=== PATIENT | female | born 1995 | race African-American/Black ===

== ENCOUNTER 2016-05-12 12:47 | Emergency (ER) | payer SELFPAY ==
[~2016-05-12] VITALS: Ht 170.2 cm; Wt 50.0 kg
[~2016-05-12 12:47] MED LIST: BENZ100 PO; MAGICPED SWISH-SWAL
[2016-05-12 13:13] VITALS: BP 110/70; PULSE 60; RESP 20; TEMP 96.1; O2SAT 99
--- NOTE | 2016-05-12 15:13 | PD ---
HPI Chief Complaint: Headache Time Seen by Provider: 15:13 Travel History International Travel<30 days: No Contact w/Intl Traveler<30days: No Traveled to known affect area: No History of Present Illness HPI 20-year-old female presents to the ED via EMS for evaluation of 2 day history of headache. Gradual onset. Described as 8/10, constant, pounding, all over. Patient denies dizziness, vision changes. The patient states that she was at work today, felt dizzy and passed out. She endorses falling to the ground, hitting her head and brief loss of consciousness. She endorses a single episode of vomiting just prior to arrival. Denies nausea on presentation. She denies history of similar headaches. States that she was otherwise feeling well. Denies fevers, chills, neck pain, chest pain, shortness of breath, abdominal pain, dysuria, weakness of the extremities. Last menstrual period 05/05. Patient denies risk of . Denies chronic health problems, takes no daily medications. NKDA. PFSH Past Medical History Asthma: Yes Diminished Hearing: No Immunizations Current: Yes ?: Not LMP: FEW DAYS AGO Social History Alcohol Use: No Tobacco Use: No Substance Use: No Allergies-Medications (Allergen,Severity, Reaction): Coded Allergies: No Known Allergies (Unverified , 05/12/16) Reported Meds & Prescriptions Reported Meds & Active Scripts Active Review of Systems Except as stated in HPI: all other systems reviewed are Neg Physical Exam Narrative GENERAL: Well-nourished, well-developed black female in no acute distress. SKIN: Warm and dry. HEAD: Normocephalic. Atraumatic. EYES: No scleral icterus. No injection or drainage. PERRLA. EOMI. ENT: Pearly merritt tympanic membranes bilaterally. Nasal mucosa is moist. Oropharynx without erythema, edema or exudate. NECK: Supple, trachea midline. No JVD or lymphadenopathy. No midline tenderness to palpation. No limitations to range of motion. CARDIOVASCULAR: Regular rate and rhythm without murmurs, gallops, or rubs. 2+ DP and radial pulses bilaterally. RESPIRATORY: Breath sounds clear and equal bilaterally. No accessory muscle use. GASTROINTESTINAL: Abdomen soft, non-tender, nondistended. + Bowel sounds MUSCULOSKELETAL: No cyanosis, or edema. Full, active range of motion. NEUROLOGICAL: Awake and alert. Cranial nerves II through XII intact. Motor and sensory grossly within normal limits. No pronator drift. 5/5 dorsiflexion, plantar flexion, knee flexion, hip flexion, biceps, triceps and immunopathologist strength bilaterally. Normal speech. BACK: Nontender without obvious deformity. No CVA tenderness. Data Data Last Documented VS Vital Signs Date Time Temp Pulse Resp B/P Pulse Ox O2 Delivery O2 Flow Rate FiO2 05/12/16 13:13 96.1 60 20 110/70 99 Orders Iv Access Insert/Monitor (05/12/16 15:39) Sodium Chloride 0.9% Flush (Ns Flush) (05/12/16 15:45) Ketorolac Inj (Toradol Inj) (05/12/16 15:45) Prochlorperazine Inj (Compazine Inj) (05/12/16 15:45) Diphenhydramine Inj (Benadryl Inj) (05/12/16 15:45) Sodium Chlor 0.9% 1000 Ml Inj (Ns 1000 M (05/12/16 15:39) Ed Urine Pregnancytest Poc (05/12/16 15:39) Complete Blood Count With Diff (05/12/16 16:26) Comprehensive Metabolic Panel (05/12/16 16:26) Urinalysis - C+S If Indicated (05/12/16 16:26) Ct Brain W/O Iv Contrast(Rout) (05/12/16 ) Labs Laboratory Tests Test 05/12/16 05/12/16 16:29 16:37 Urine Color YELLOW Urine Turbidity HAZY Urine pH 6.0 Urine Specific [place] 1.027 Urine Protein TRACE mg/dL Urine Glucose (UA) NEG mg/dL Urine Ketones 40 mg/dL Urine Occult Blood NEG Urine Nitrite NEG Urine Bilirubin NEG Urine Urobilinogen LESS THAN 2.0 MG/DL Urine Leukocyte Esterase NEG Urine RBC 2 /hpf Urine WBC 2 /hpf Urine Squamous Epithelial 4 /hpf Cells Urine Bacteria RARE /hpf Urine Mucus MANY /lpf Microscopic Urinalysis Comment CULT NOT INDICATED White Blood Count 6.5 TH/MM3 Red Blood Count 4.11 MIL/MM3 Hemoglobin 12.0 GM/DL Hematocrit 35.2 % Mean Corpuscular Volume 85.8 FL Mean Corpuscular Hemoglobin 29.2 PG Mean Corpuscular Hemoglobin 34.0 % Concent Red Cell Distribution Width 13.1 % Platelet Count 161 TH/MM3 Mean Platelet Volume 8.6 FL Neutrophils (%) (Auto) 67.6 % Lymphocytes (%) (Auto) 24.5 % Monocytes (%) (Auto) 5.5 % Eosinophils (%) (Auto) 1.9 % Basophils (%) (Auto) 0.5 % Neutrophils # (Auto) 4.4 TH/MM3 Lymphocytes # (Auto) 1.6 TH/MM3 Monocytes # (Auto) 0.4 TH/MM3 Eosinophils # (Auto) 0.1 TH/MM3 Basophils # (Auto) 0.0 TH/MM3 CBC Comment DIFF FINAL Differential Comment Sodium Level 142 MEQ/L Potassium Level 3.5 MEQ/L Chloride Level 110 MEQ/L Carbon Dioxide Level 24.9 MEQ/L Anion Gap 7 MEQ/L Blood Urea Nitrogen 7 MG/DL Creatinine 0.70 MG/DL Estimat Glomerular Filtration 127 ML/MIN Rate Random Glucose 71 MG/DL Calcium Level 7.9 MG/DL Total Bilirubin 0.6 MG/DL Aspartate Amino Transf 23 U/L (AST/SGOT) Alanine Aminotransferase 21 U/L (ALT/SGPT) Alkaline Phosphatase 60 U/L Total Protein 6.0 GM/DL Albumin 3.3 GM/DL [facility] Medical Decision Making Medical Screen Exam Complete: Yes Emergency Medical Condition: Yes Differential Diagnosis Cephalgia versus migraine versus versus electrolyte abnormality versus dehydration versus UTI versus less likely ICH versus other Narrative Course 20-year-old female presents to the ED via EMS for evaluation of 2 day history of headache. Gradual onset. Described as 8/10, constant, pounding, all over. Patient denies dizziness, vision changes. The patient states that she was at work today, felt dizzy and "passed out" She endorses falling to the ground, hitting her head and brief loss of consciousness. She endorses a single episode of vomiting just prior to arrival. Denies nausea on presentation. She denies history of similar headaches. Denies fevers, chills, neck pain, chest pain, shortness of breath, abdominal pain, dysuria, weakness of the extremities. Last menstrual period 05/05/16. Patient denies risk of . Vitals reviewed. Physical exam is a nontoxic-appearing black female in no acute distress. Alert, oriented 5. No cervical spinal tenderness or limitations to range of motion of the neck. No focal neural deficits. IV was established. Patient was administered a liter of fluids, IV Benadryl, IV Compazine, IV Toradol. CBC: Unremarkable CMP: Mild hypocalcemia. UA: No culture indicated CT the head: No acute disease per radiology read. Recheck of the patient reveals resolution of headache symptoms. Patient is instructed to avoid known stressors, rest, hydrate, eat meals at regular intervals. We discussed red flag headache symptoms, reasons to return to the ED. Patient's instructed to follow-up with her primary care provider. She indicated understanding of the instructions. She is agreeable to plan of care. She is stable and discharged home. Diagnosis Primary Impression: Cephalgia Qualified Code: R51 - Intractable headache, unspecified chronicity pattern, unspecified headache type Additional Impression: Hypocalcemia Referrals: Primary Care Physician Patient Instructions: Acute Headache (ED), General Instructions, Hypocalcemia ( ED) Additional Instructions: Rest, hydrate. Consider daily calcium supplement. Avoid no stressors. Eat meals at regular intervals. Follow-up with your primary care provider. Return to the ED for worsening of symptoms, or any urgent or emergent medical condition. Disposition: 01 DISCHARGE HOME Condition: Stable Carole De Leon May 12, 2016 15:13
[2016-05-12] MEDS ORDERED: SODIUM CHLOR 0.9% 1000 ML INJ 1,000 ML IV ONE (15:39)
[2016-05-12] MEDS ORDERED: diphenhydrAMINE HCL 50 MG/ML VIAL IVP ONE (15:45)
[2016-05-12] MEDS ORDERED: PROCHLORPERAZINE INJ 10 MG/2 ML VIAL IVP ONE (15:45)
[2016-05-12] MEDS ORDERED: KETOROLAC TROMETHAMINE 60 MG/2 ML (IM) VIAL IM ONE (15:45)
[2016-05-12] MEDS ORDERED: SODIUM CHLORIDE 0.9% FLUSH 5 ML FLUSH IVF PRN (15:45)
[2016-05-12 16:52] LABS: AUTOMATED NEUTROPHIL # 4.4 TH/MM3 (1.8-7.7); BASOPHIL % 0.5 % (0.0-2.0); EOSINOPHIL # 0.1 TH/MM3 (0-0.4); EOSINOPHIL % 1.9 % (0.0-4.0); HEMATOCRIT 35.2 % (35.0-46.0); HEMO FLAGS DIFF FINAL; LYMPH % 24.5 % (9.0-44.0); LYMPHOCYTE # 1.6 TH/MM3 (1.0-4.8); MEAN CELL VOLUME 85.8 FL (80.0-100.0); MEAN CORPUSCULAR HEMOGLOBIN 29.2 PG (27.0-34.0); MONO % 5.5 % (0.0-8.0); NEUT % 67.6 % (16.0-70.0); PLATELET COUNT 161 TH/MM3 (150-450); RED BLOOD COUNT 4.11 MIL/MM3 (4.00-5.30); RED CELL DISTRIBUTION WIDTH 13.1 % (11.6-17.2); WHITE BLOOD COUNT 6.5 TH/MM3 (4.0-11.0)
--- NOTE | 2016-05-12 17:00 | RADRPT ---
EXAM DATE/TIME: 05/12/2016 16:41 [facility] COMPARISON: No previous studies available for comparison. INDICATIONS : Cephaliga. RADIATION DOSE: 50.03 CTDIvol (mGy) MEDICAL HISTORY : None SURGICAL HISTORY : None. ENCOUNTER: Initial ACUITY: 1 day PAIN SCALE: 5/10 LOCATION: cranial TECHNIQUE: Multiple contiguous axial images were obtained of the head. Using automated exposure control and adj ustment of the mA and/or kV according to patient size, radiation dose was kept as low as reasonably a chievable to obtain optimal diagnostic quality images. FINDINGS: CEREBRUM: The ventricles are normal for age. No evidence of midline shift, mass lesion, hemorrhage or acute in farction. No extra-axial fluid collections are seen. POSTERIOR FOSSA: The cerebellum and brainstem are intact. The 4th ventricle is midline. The cerebellopontine angle i s unremarkable. EXTRACRANIAL: The visualized portion of the orbits is intact. SKULL: The calvaria is intact. No evidence of skull fracture. CONCLUSION: No acute disease. Dennis Santillan MD FACR on May 12, 2016 at 16:58 Board Certified Radiologist. This report was verified electronically.
[2016-05-12 17:07] LABS: BACTERIA, URINE RARE /hpf; BLOOD, URINE NEG (NEG); GLUCOSE,URINE NEG (NEG); KETONE, URINE 40 mg/dL (NEG); MUCUS URINE MANY /lpf (OCC); NITRITE,URINE NEG (NEG); SQUAMOUS EPITHELIAL CELL URINE 4 /hpf (0-5); URINE COLOR YELLOW (YELLW/STRAW)
[2016-05-12 17:09] LABS: ALT (GPT) 21 U/L (10-53); ANION GAP 7 MEQ/L (5-15); AST (GOT) 23 U/L (15-37); BICARBONATE 24.9 MEQ/L (21.0-32.0); BLOOD UREA NITROGEN 7 MG/DL (7-18); CHLORIDE 110 MEQ/L (98-107); GLOMERULAR FILTRATION RATE 127 ML/MIN (>89); POTASSIUM 3.5 MEQ/L (3.5-5.1); SODIUM (NA) 142 MEQ/L (136-145)
[2016-05-12 17:09] LABS: COMMENT (UR) CULT NOT INDICATED; CULTURE IF INDICATED CULT NOT INDICATED
[2016-05-12 17:13] LABS: ALKALINE PHOSPHATASE 60 U/L (45-117); TOTAL BILIRUBIN ADULT 0.6 MG/DL (0.2-1.0)
[2016-05-12] MEDS ORDERED: CALCIUM CARBONATE 1.25 GM (CA 500 MG) TAB PO ONE (17:45)
== END 2016-05-12 18:54 | disposition home or self-care (01) ==
LOC: NEDAMB 12:47
DX: R51 Headache (principal); E83.51 Hypocalcemia; R11.10 Vomiting, unspecified; W18.39XA Other fall on same level, initial encounter; Y99.0 Civilian activity done for income or pay; S06.9X9A Unspecified intracranial injury with loss of consciousness of unspecified duration, initial encounter; J45.909 Unspecified asthma, uncomplicated
CPT/HCPCS: 70450; 80053; 81001; 84703; 85025; 96372; 96374; 96375; 99284; J0780; J1200; J1885; J7030

== ENCOUNTER 2016-07-01 16:34 | Emergency (ER) | payer SELFPAY ==
[~2016-07-01] VITALS: Ht 165.1 cm; Wt 70.0 kg
[2016-07-01 16:36] VITALS: BP 118/62; PULSE 92; RESP 16; TEMP 97.9; O2SAT 99
--- NOTE | 2016-07-01 16:53 | PD ---
Physical Exam Date Seen by Provider: Jul 01, 2016 Time Seen by Provider: 16:47 Narrative Patient seen in Triage with 1 week history of Nausea, Vomitting, Abd. Cramps, and Diarrhea. Patient denies Urinary symptoms, or vaginal symptoms. Patient denies fever or chills. Patients' LMP was a month ago. Patient has no sick contacts. Patient denies flank pain. Vital signs stable. Patient awaiting bed placement. Data Data Last Documented VS Vital Signs Date Time Temp Pulse Resp B/P Pulse Ox O2 Delivery O2 Flow Rate FiO2 07/01/16 16:36 97.9 92 16 118/62 99 Room Air [facility] Medical Record Reviewed: Yes Supervised Visit with BEBO: Yes Condition: Stable Paul Baca Jul 01, 2016 16:53
--- NOTE | 2016-07-01 20:10 | PD ---
HPI Chief Complaint: GI Complaint Time Seen by Provider: 19:59 Travel History International Travel<30 days: No Contact w/Intl Traveler<30days: No Traveled to known affect area: No History of Present Illness HPI 20yo F with no PMH presents to the ED with c/o intermittent lower abdominal cramping for 1 week. States she feels like her period is coming but it has not. LMP 05/30/16 and pt found out that she is here in the ED. Had some nausea and nonbloody diarrhea. Denies any current fever, chest pain, sob, vaginal bleeding or discharge. PFSH Past Medical History Medical History: Denies Significant Hx Asthma: Yes Diminished Hearing: No Immunizations Current: Yes Tetanus Vaccination: > 5 Years ?: Not LMP: 05/29/16 Past Surgical History Surgical History: No Previous Surgery Social History Alcohol Use: No Tobacco Use: No Substance Use: No Allergies-Medications (Allergen,Severity, Reaction): Coded Allergies: No Known Allergies (Unverified , 05/12/16) Reported Meds & Prescriptions Reported Meds & Active Scripts Active No Active Prescriptions or Reported Medications Review of Systems Except as stated in HPI: all other systems reviewed are Neg Physical Exam Narrative GENERAL: 20yo F not in distress. SKIN: Focused skin assessment warm/dry. HEAD: Atraumatic. Normocephalic. CARDIOVASCULAR: Regular rate and rhythm. No murmur appreciated. RESPIRATORY: No accessory muscle use. Clear to auscultation. Breath sounds equal bilaterally. GASTROINTESTINAL: Abdomen soft, +TTP suprapubic region. No RLQ tenderness. No rebound tenderness or guarding. PELVIC: +Small amount of white vaginal discharge. No blood. No CMT or adnexal tenderness bilaterally. MUSCULOSKELETAL: No obvious deformities. No clubbing. No cyanosis. No edema. NEUROLOGICAL: Awake and alert. No obvious cranial nerve deficits. Motor grossly within normal limits. Normal speech. PSYCHIATRIC: Appropriate mood and affect; insight and judgment normal. Data Data Last Documented VS Vital Signs Date Time Temp Pulse Resp B/P Pulse Ox O2 Delivery O2 Flow Rate FiO2 07/01/16 16:36 97.9 92 16 118/62 99 Room Air Orders Beta Hcg (Quant/Titer) (07/01/16 20:05) Complete Blood Count With Diff (07/01/16 20:05) Comprehensive Metabolic Panel (07/01/16 20:05) Lipase (07/01/16 20:05) Urinalysis - C+S If Indicated (07/01/16 20:05) Sodium Chloride 0.9% Flush (Ns Flush) (07/01/16 20:15) Acetaminophen (Tylenol) (07/01/16 20:15) Gc And Chlamydia Pcr (07/01/16 20:56) Wet Prep Profile (07/01/16 20:56) Ed Poc Ultrasound (07/01/16 ) Labs Laboratory Tests Test 07/01/16 07/01/16 20:00 20:05 White Blood Count 9.9 TH/MM3 Red Blood Count 4.25 MIL/MM3 Hemoglobin 12.5 GM/DL Hematocrit 36.2 % Mean Corpuscular Volume 85.1 FL Mean Corpuscular Hemoglobin 29.3 PG Mean Corpuscular Hemoglobin 34.5 % Concent Red Cell Distribution Width 12.8 % Platelet Count 182 TH/MM3 Mean Platelet Volume 9.0 FL Neutrophils (%) (Auto) 60.2 % Lymphocytes (%) (Auto) 30.5 % Monocytes (%) (Auto) 6.5 % Eosinophils (%) (Auto) 2.0 % Basophils (%) (Auto) 0.8 % Neutrophils # (Auto) 5.9 TH/MM3 Lymphocytes # (Auto) 3.0 TH/MM3 Monocytes # (Auto) 0.6 TH/MM3 Eosinophils # (Auto) 0.2 TH/MM3 Basophils # (Auto) 0.1 TH/MM3 CBC Comment DIFF FINAL Differential Comment Urine Color YELLOW Urine Turbidity CLEAR Urine pH 6.0 Urine Specific [place] 1.020 Urine Protein NEG mg/dL Urine Glucose (UA) NEG mg/dL Urine Ketones NEG mg/dL Urine Occult Blood NEG Urine Nitrite NEG Urine Bilirubin NEG Urine Urobilinogen LESS THAN 2.0 MG/DL Urine Leukocyte Esterase NEG Urine RBC LESS THAN 1 /hpf Urine WBC 2 /hpf Urine Squamous Epithelial 3 /hpf Cells Urine Mucus FEW /lpf Microscopic Urinalysis Comment CULT NOT INDICATED Sodium Level 138 MEQ/L Potassium Level 3.5 MEQ/L Chloride Level 105 MEQ/L Carbon Dioxide Level 23.8 MEQ/L Anion Gap 9 MEQ/L Blood Urea Nitrogen 8 MG/DL Creatinine 0.71 MG/DL Estimat Glomerular Filtration 125 ML/MIN Rate Random Glucose 85 MG/DL Calcium Level 8.4 MG/DL Total Bilirubin 0.3 MG/DL Aspartate Amino Transf 12 U/L (AST/SGOT) Alanine Aminotransferase 15 U/L (ALT/SGPT) Alkaline Phosphatase 82 U/L Total Protein 6.8 GM/DL Albumin 3.7 GM/DL Lipase 134 U/L Human Chorionic Gonadotropin, 5897 MIU/ML Quant Clue Cells (Wet Prep) NONE SEEN Vaginal Trichomonas (Wet Prep) NONE SEEN Vaginal Yeast (Wet Prep) NONE SEEN MDM Medical Decision Making Medical Screen Exam Complete: Yes Emergency Medical Condition: Yes Differential Diagnosis Early vs. UTI vs. bacterial vaginosis Narrative Course 20yo F with early . Labs reviewed, no leukocytosis. bHCG 5897. UA negative. Wet prep negative. Bedside US showed + Intrauterine gestational sac. Pt does not want to wait for an official US. Pt is well appearing and has no abdominal pain on exam anymore after acetaminophen. Will have pt follow up with OBGYN. Return precautions given. Diagnosis Primary Impression: Early stage of Patient Instructions: General Instructions Departure Forms: Tests/Procedures Additional Instructions: Please follow up with your OBGYN in 1-2 days. Return to the ED if symptoms worsen. Med/Other Pt SpecificInfo: Prescription(s) given Scripts Acetaminophen (Acetaminophen Extra Strength)500 Mg [id number] Mg PO Q6H PRN (PAIN SCALE 1 TO 4) #20 TAB Ref 0 Prov:Janessa Schmidt DO 07/01/16 Disposition: 01 DISCHARGE HOME Condition: Stable Janessa Schmidt DO Jul 01, 2016 20:10
[2016-07-01] MEDS ORDERED: SODIUM CHLORIDE 0.9% FLUSH 10 ML FLUSH IV FLUSH PRN (20:15)
[2016-07-01] MEDS ORDERED: ACETAMINOPHEN 325 MG TAB PO ONE (20:15)
[2016-07-01 20:21] LABS: AUTOMATED NEUTROPHIL # 5.9 TH/MM3 (1.8-7.7); BASOPHIL # 0.1 TH/MM3 (0-0.2); BASOPHIL % 0.8 % (0.0-2.0); EOSINOPHIL # 0.2 TH/MM3 (0-0.4); HEMATOCRIT 36.2 % (35.0-46.0); HEMO FLAGS DIFF FINAL; LYMPH % 30.5 % (9.0-44.0); MEAN CELL VOLUME 85.1 FL (80.0-100.0); MEAN CORPUSCULAR HEMOGLOBIN 29.3 PG (27.0-34.0); MEAN CORPUSCULAR HGB CONC 34.5 % (32.0-36.0); MONO % 6.5 % (0.0-8.0); NEUT % 60.2 % (16.0-70.0); PLATELET COUNT 182 TH/MM3 (150-450); RED BLOOD COUNT 4.25 MIL/MM3 (4.00-5.30); RED CELL DISTRIBUTION WIDTH 12.8 % (11.6-17.2); WHITE BLOOD COUNT 9.9 TH/MM3 (4.0-11.0)
[2016-07-01 20:43] LABS: ANION GAP 9 MEQ/L (5-15); AST (GOT) 12 U/L (15-37); BICARBONATE 23.8 MEQ/L (21.0-32.0); BLOOD UREA NITROGEN 8 MG/DL (7-18); CHLORIDE 105 MEQ/L (98-107); GLOMERULAR FILTRATION RATE 125 ML/MIN (>89); POTASSIUM 3.5 MEQ/L (3.5-5.1); SODIUM (NA) 138 MEQ/L (136-145)
[2016-07-01 21:00] LABS: ALKALINE PHOSPHATASE 82 U/L (45-117); ALT (GPT) 15 U/L (10-53); BETA HCG QUANT 5897 MIU/ML (0-5); TOTAL BILIRUBIN ADULT 0.3 MG/DL (0.2-1.0)
[2016-07-01 21:20] LABS: BLOOD, URINE NEG (NEG); COMMENT (UR) CULT NOT INDICATED; CULTURE IF INDICATED CULT NOT INDICATED; GLUCOSE,URINE NEG (NEG); KETONE, URINE NEG (NEG); MUCUS URINE FEW /lpf (OCC); NITRITE,URINE NEG (NEG); SQUAMOUS EPITHELIAL CELL URINE 3 /hpf (0-5); URINE COLOR YELLOW (YELLW/STRAW)
[2016-07-01] MEDS ORDERED: ACET500T36 PO (23:57)
[2016-07-02 00:03] VITALS: BP 118/60
[2016-07-02 00:14] LABS: CHLAMYDIA PCR NOT DETECTED (NOT DETECT); NEISSERIA PCR NOT DETECTED (NOT DETECT)
== END 2016-07-02 00:04 | disposition home or self-care (01) ==
LOC: NEPC 16:34
DX: O21.0 Mild hyperemesis gravidarum (principal); Z3A.01 Less than 8 weeks gestation of pregnancy
CPT/HCPCS: 80053; 81001; 83690; 84702; 85025; 87210; 87491; 87591; 99284

== ENCOUNTER 2016-07-07 10:17 | Emergency (ER) | payer OTHER ==
[~2016-07-07] VITALS: Ht 165.1 cm; Wt 70.0 kg
[~2016-07-07 10:17] MED LIST changes: +ACET500T36 PO; -BENZ100 PO; -MAGICPED SWISH-SWAL
[2016-07-07 10:18] VITALS: BP 113/75; PULSE 72; RESP 20; TEMP 98.2; O2SAT 99
[2016-07-07 10:39] VITALS: BP 120/69; PULSE 94; RESP 20; O2SAT 99
[2016-07-07] MEDS ORDERED: SODIUM CHLOR 0.9% 1000 ML INJ 1,000 ML IV ONE (11:30)
[2016-07-07] MEDS ORDERED: METOCLOPRAMIDE HCL 10 MG/2 ML VIAL IV PUSH ONE (11:30)
--- NOTE | 2016-07-07 11:31 | PD ---
HPI Chief Complaint: Related Problem Time Seen by Provider: 11:30 Travel History International Travel<30 days: No Contact w/Intl Traveler<30days: No Traveled to known affect area: No History of Present Illness HPI 20-year-old female presents to the emergency department for evaluation of nausea , vomiting, decreased appetite, lower abdominal pain. She reports a 5-6 weeks . Patient is a G1, P0. She reports nausea and vomiting. She states she has vomited 3 times today. She denies any fevers. She reports 2 episodes of diarrhea yesterday, but none today. No blood in her stool. She states she has not eaten in 2 days and feels dehydrated. She denies any shortness of breath or chest pain. She has no chronic medical problems and takes no medications. She denies any allergies. She denies any abnormal vaginal discharge or bleeding. She reports one sexual partner no risk of STDs. Patient states a abdominal pain started on Tuesday and is currently 10/10. Patient denies any urinary symptoms. No dysuria, frequency, urgency. She has not yet established with an helmet hat sweatband puncher. [facility] Past Medical History Asthma: Yes (HX OF NONE SINCE MIDDLE SCHOOL) Diminished Hearing: No Immunizations Current: Yes ?: LMP: 05/31/16 Past Surgical History Surgical History: No Previous Surgery Social History Alcohol Use: No Tobacco Use: No Substance Use: No Allergies-Medications (Allergen,Severity, Reaction): Coded Allergies: No Known Allergies (Unverified , 05/12/16) Reported Meds & Prescriptions Reported Meds & Active Scripts Active Acetaminophen Extra Strength (Acetaminophen) 500 Mg Tab 500 Mg PO Q6H PRN Review of Systems Except as stated in HPI: all other systems reviewed are Neg Physical Exam Narrative GENERAL: Well-nourished, well-developed female patient, afebrile. SKIN: Focused skin assessment warm/dry. HEAD: Normocephalic. Atraumatic. EYES: No scleral icterus. No injection or drainage. NECK: Supple, trachea midline. No JVD or lymphadenopathy. CARDIOVASCULAR: Regular rate and rhythm without murmurs, gallops, or rubs. RESPIRATORY: Breath sounds equal bilaterally. No accessory muscle use. Lungs sounds are clear to auscultation. GASTROINTESTINAL: Abdomen soft and nondistended. Suprapubic tenderness to palpation. MUSCULOSKELETAL: No cyanosis, or edema. BACK: Nontender without obvious deformity. No CVA tenderness. GENITOURINARY: Normal external genitalia without lesions or erythema. Vaginal vault without blood. Cervical os was closed. No cervical motion tenderness. Uterus nontender and nonenlarged. Bilateral adnexa nontender without masses. Pelvic Exam was done with RN at bedside. Data Data Last Documented VS Vital Signs Date Time Temp Pulse Resp B/P Pulse Ox O2 Delivery O2 Flow Rate FiO2 07/07/16 12:10 90 20 133/60 100 Room Air 07/07/16 10:18 98.2 Orders Beta Hcg (Quant/Titer) (07/07/16 11:26) Complete Blood Count With Diff (07/07/16 11:26) Basic Metabolic Panel (Bmp) (07/07/16 11:26) Urinalysis - C+S If Indicated (07/07/16 11:26) Iv Access Insert/Monitor (07/07/16 11:26) Sodium Chlor 0.9% 1000 Ml Inj (Ns 1000 M (07/07/16 11:30) Metoclopramide Inj (Reglan Inj) (07/07/16 11:30) Acetaminophen (Tylenol) (07/07/16 11:45) Complete Rh (07/07/16 11:32) Us Pelvis (Ques Pr/Ect)W Trans (07/07/16 ) Labs Laboratory Tests Test 07/07/16 07/07/16 11:37 11:44 White Blood Count 7.8 TH/MM3 Red Blood Count 4.95 MIL/MM3 Hemoglobin 14.7 GM/DL Hematocrit 41.6 % Mean Corpuscular Volume 84.0 FL Mean Corpuscular Hemoglobin 29.8 PG Mean Corpuscular Hemoglobin 35.4 % Concent Red Cell Distribution Width 12.5 % Platelet Count 225 TH/MM3 Mean Platelet Volume 9.0 FL Neutrophils (%) (Auto) 77.2 % Lymphocytes (%) (Auto) 15.2 % Monocytes (%) (Auto) 6.6 % Eosinophils (%) (Auto) 0.5 % Basophils (%) (Auto) 0.5 % Neutrophils # (Auto) 6.0 TH/MM3 Lymphocytes # (Auto) 1.2 TH/MM3 Monocytes # (Auto) 0.5 TH/MM3 Eosinophils # (Auto) 0.0 TH/MM3 Basophils # (Auto) 0.0 TH/MM3 CBC Comment DIFF FINAL Differential Comment Sodium Level 136 MEQ/L Potassium Level 3.5 MEQ/L Chloride Level 103 MEQ/L Carbon Dioxide Level 24.7 MEQ/L Anion Gap 8 MEQ/L Blood Urea Nitrogen 6 MG/DL Creatinine 0.71 MG/DL Estimat Glomerular Filtration 125 ML/MIN Rate Random Glucose 79 MG/DL Calcium Level 9.1 MG/DL Human Chorionic Gonadotropin, 53692 MIU/ML Quant Blood Type O POSITIVE Rho(D) Type POSITIVE Urine Color YELLOW Urine Turbidity HAZY Urine pH 5.5 Urine Specific [place] 1.032 Urine Protein 30 mg/dL Urine Glucose (UA) NEG mg/dL Urine Ketones 150 mg/dL Urine Occult Blood NEG Urine Nitrite NEG Urine Bilirubin NEG Urine Urobilinogen LESS THAN 2.0 MG/DL Urine Leukocyte Esterase NEG Urine RBC 1 /hpf Urine WBC 4 /hpf Urine Squamous Epithelial 3 /hpf Cells Urine Hyaline Casts 2 /lpf Urine Mucus MANY /lpf Microscopic Urinalysis Comment CULT NOT INDICATED MDM Medical Decision Making Medical Screen Exam Complete: Yes Emergency Medical Condition: Yes Medical Record Reviewed: Yes Interpretation(s) US pelvis - CONCLUSION: 1. Viable intrauterine estimated age 6 weeks 2 days. Differential Diagnosis Intrauterine versus ectopic versus viral syndrome versus nausea, vomiting in versus electrolyte abnormality Narrative Course 20-year-old female presents to the emergency department for evaluation of nausea , vomiting in with lower abdominal pain. CBC, BMP, beta hCG, UA, complete Rh are ordered and pending. Ultrasound the pelvis is ordered and pending. IV access is established. Patient is given 1 liter NS IV bolus, Reglan 10 mg IV, Tylenol 650 mg PO. CBC shows no acute abnormality. BMP shows [place] [address]. Blood type is O+. UA shows no evidence of infection. US pelvis shows viable intrauterine estimated age 6 weeks 2 days. Patient is instructed to follow that helmet hat sweatband puncher. She'll be discharged prescription for Zofran for her nausea. She verbalizes agreement and understanding. The patient was discharged in stable condition with instructions, including return instructions and follow up instructions. Diagnosis Primary Impression: Intrauterine Referrals: Reading Teacher call for appointment Patient Instructions: First Trimester (ED), General Instructions Departure Forms: Tests/Procedures, Work Release Enter return to work date: Jul 10, 2016 Additional Instructions: Take Zofran as instructed as needed for nausea/vomiting. Tylenol every 4 hours as needed for pain. Follow-up with your helmet hat sweatband puncher. Return to the emergency department for any acute worsening of symptoms. Med/Other Pt SpecificInfo: Prescription(s) given Scripts Ondansetron Odt 4 Mg Tab4 Mg SL Q6HR PRN (Nausea/Vomiting) #16 TAB Ref 0 Prov:Chiquis Ko 07/07/16 Disposition: 01 DISCHARGE HOME Condition: Stable Chiquis Ko Jul 07, 2016 11:31
[2016-07-07] MEDS ORDERED: ACETAMINOPHEN 325 MG TAB PO ONE (11:45)
[2016-07-07 12:00] LABS: BASOPHIL % 0.5 % (0.0-2.0); EOSINOPHIL % 0.5 % (0.0-4.0); HEMATOCRIT 41.6 % (35.0-46.0); HEMO FLAGS DIFF FINAL; LYMPH % 15.2 % (9.0-44.0); LYMPHOCYTE # 1.2 TH/MM3 (1.0-4.8); MEAN CORPUSCULAR HEMOGLOBIN 29.8 PG (27.0-34.0); MEAN CORPUSCULAR HGB CONC 35.4 % (32.0-36.0); MONO % 6.6 % (0.0-8.0); NEUT % 77.2 % (16.0-70.0); PLATELET COUNT 225 TH/MM3 (150-450); RED BLOOD COUNT 4.95 MIL/MM3 (4.00-5.30); RED CELL DISTRIBUTION WIDTH 12.5 % (11.6-17.2); WHITE BLOOD COUNT 7.8 TH/MM3 (4.0-11.0)
[2016-07-07 12:10] VITALS: BP 133/60; PULSE 90; RESP 20; O2SAT 100
[2016-07-07 12:13] LABS: BLOOD, URINE NEG (NEG); GLUCOSE,URINE NEG (NEG); HYALINE CAST, URINE 2 /lpf (RARE); KETONE, URINE 150 mg/dL (NEG); MUCUS URINE MANY /lpf (OCC); NITRITE,URINE NEG (NEG); PH, URINE 5.5 (5.0-8.5); SQUAMOUS EPITHELIAL CELL URINE 3 /hpf (0-5); URINE COLOR YELLOW (YELLW/STRAW)
[2016-07-07 12:15] LABS: COMMENT (UR) CULT NOT INDICATED; CULTURE IF INDICATED CULT NOT INDICATED
[2016-07-07 12:21] LABS: BICARBONATE 24.7 MEQ/L (21.0-32.0); POTASSIUM 3.5 MEQ/L (3.5-5.1)
--- NOTE | 2016-07-07 15:48 | RADRPT ---
EXAM DATE/TIME: 07/07/2016 14:11 [facility] COMPARISON: No previous studies available for comparison. INDICATIONS : Pelvic pain. LAB(S): Beta-hC,193 MEDICAL HISTORY : . Asthma. SURGICAL HISTORY : None. ENCOUNTER: Initial ACUITY: 3 days PAIN SCORE: 3/10 LOCATION: Bilateral pelvis MEASUREMENTS: UTERUS: 7.4 x 3.6 x 4.5 cm ENDOMETRIAL STRIPE: 9 mm RIGHT OVARY: 3.7 x 2.7 x 4.0 cm LEFT OVARY: 3.0 x 1.7 x 2.1 cm FREE FLUID: No CROWN RUMP LENGTH: 0.5 cm = 6 WKS 2 DAYS FHR: 121 BPM FINDINGS: UTERUS: The examination demonstrates an intrauterine gestation. Everly-rump length measures 0.51 CM. This kinza esponds to gestational age 6 weeks 2 days. A heartbeat was present at 121 beats per minutes. Th ere is a small hypoechoic area seen adjacent to the gestational sacs measuring 6 mm x 9 mm possibly r epresenting a small area of subchorionic hemorrhage. RIGHT OVARY: Ovary contains no mass or significant cystic lesion. LEFT OVARY: Ovary contains no mass or significant cystic lesion. MISCELLANEOUS: No free fluid. CONCLUSION: 1. Viable intrauterine estimated age 6 weeks 2 days. Anupam Santillan MD on July 07, 2016 at 15:44 Board Certified Radiologist. This report was verified electronically.
[2016-07-07] MEDS ORDERED: ONDA4TAB7 SL (15:57)
== END 2016-07-07 16:34 | disposition home or self-care (01) ==
LOC: NEPD 10:17
DX: O21.9 Vomiting of pregnancy, unspecified (principal); O26.891 Other specified pregnancy related conditions, first trimester; R10.30 Lower abdominal pain, unspecified; Z3A.01 Less than 8 weeks gestation of pregnancy
CPT/HCPCS: 76700; 76817; 80048; 81001; 84702; 85025; 86901; 96361; 96374; 99284; J2765; J7030

== ENCOUNTER 2016-07-24 15:39 | Emergency (ER) | payer MEDICAID ==
[~2016-07-24] VITALS: Ht 165.1 cm; Wt 64.5 kg
[~2016-07-24 15:39] MED LIST changes: +ONDA4TAB7 SL
[2016-07-24 15:41] VITALS: BP 128/75; PULSE 86; RESP 20; TEMP 98.5; O2SAT 98
--- NOTE | 2016-07-24 16:03 | PD ---
Physical Exam Date Seen by Provider: Jul 24, 2016 Time Seen by Provider: 16:00 Narrative 20 y/o female with 3 days of vomiting and nausea. Patient 6 weeks with first . Denies fever, chills, abdominal pain or Urinary symptoms. Patient feels weak and unable to keep anything down. V/S Stable Waiting bed placement. Data Data Last Documented VS Vital Signs Date Time Temp Pulse Resp B/P Pulse Ox O2 Delivery O2 Flow Rate FiO2 07/24/16 15:41 98.5 86 20 128/75 98 Room Air [facility] Medical Record Reviewed: Yes Supervised Visit with BEBO: Yes Condition: Stable Paul Baca Jul 24, 2016 16:03
[2016-07-24] MEDS ORDERED: SODIUM CHLOR 0.9% 1000 ML INJ 1,000 ML IV SCH (16:10)
[2016-07-24] MEDS ORDERED: SODIUM CHLORIDE 0.9% FLUSH 10 ML FLUSH IV FLUSH PRN (16:15)
[2016-07-24] MEDS ORDERED: diphenhydrAMINE HCL 50 MG/ML VIAL IV PUSH ONE (16:15)
--- NOTE | 2016-07-24 16:22 | PD ---
HPI Chief Complaint: GI Complaint Time Seen by Provider: 16:07 Travel History International Travel<30 days: No Contact w/Intl Traveler<30days: No Traveled to known affect area: No History of Present Illness HPI Patient is a 20-year-old female at This 8 weeks 5 days by 6 week ultrasound performed at this facility. She presents emergency department today for feelings of nausea and vomiting and not been able to keep anything down. Patient states his been going on for the past few days. She has not tried anything prior to arrival. Denies any abdominal pain vaginal bleeding vaginal discharge loss of fluid or pelvic pain. Patient states she is thirsty and feeling weak. Denies any fevers. States symptoms are gradually worsening. [facility] Past Medical History Asthma: Yes (HX OF NONE SINCE MIDDLE SCHOOL) Diminished Hearing: No Immunizations Current: Yes ?: LMP: 05/31/2016 Social History Alcohol Use: No Tobacco Use: No Substance Use: No Allergies-Medications (Allergen,Severity, Reaction): Coded Allergies: No Known Allergies (Unverified , 07/24/16) Reported Meds & Prescriptions Reported Meds & Active Scripts Active Diphenhydramine (Diphenhydramine HCl) 25 Mg Cap 25 Mg PO Q6H PRN Ondansetron Odt 4 Mg Tab 4 Mg SL Q6HR PRN Acetaminophen Extra Strength (Acetaminophen) 500 Mg Tab 500 Mg PO Q6H PRN Review of Systems Except as stated in HPI: all other systems reviewed are Neg Physical Exam Narrative GENERAL: Well-developed well-nourished no apparent distress. SKIN: Warm and dry. HEAD: Atraumatic. Normocephalic. EYES: Pupils equal and round. No scleral icterus. No injection or drainage. ENT: No nasal bleeding or discharge. Mucous membranes pink and moist. NECK: Trachea midline. No JVD. CARDIOVASCULAR: Regular rate and rhythm. RESPIRATORY: No accessory muscle use. Clear to auscultation. Breath sounds equal bilaterally. GASTROINTESTINAL: Abdomen soft, non-tender, nondistended. Hepatic and splenic margins not palpable. No rebound no percussive tenderness. Uterine fundus not palpable. MUSCULOSKELETAL: Extremities without clubbing, cyanosis, or edema. No obvious deformities. NEUROLOGICAL: Awake and alert. No obvious cranial nerve deficits. Motor grossly within normal limits. Five out of 5 muscle strength in the arms and legs. Normal speech. PSYCHIATRIC: Appropriate mood and affect; insight and judgment normal. Data Data Last Documented VS Vital Signs Date Time Temp Pulse Resp B/P Pulse Ox O2 Delivery O2 Flow Rate FiO2 07/24/16 15:41 98.5 86 20 128/75 98 Room Air Orders Basic Metabolic Panel (Bmp) (07/24/16 16:10) Complete Blood Count With Diff (07/24/16 16:10) Iv Access Insert/Monitor (07/24/16 16:10) Ecg Monitoring (07/24/16 16:10) Oximetry (07/24/16 16:10) Sodium Chlor 0.9% 1000 Ml Inj (Ns 1000 M (07/24/16 16:10) Sodium Chloride 0.9% Flush (Ns Flush) (07/24/16 16:15) Diphenhydramine Inj (Benadryl Inj) (07/24/16 16:15) Ondansetron Inj (Zofran Inj) (07/24/16 17:00) Labs Laboratory Tests Test 07/24/16 16:42 White Blood Count 10.4 TH/MM3 Red Blood Count 4.47 MIL/MM3 Hemoglobin 13.2 GM/DL Hematocrit 37.3 % Mean Corpuscular Volume 83.4 FL Mean Corpuscular Hemoglobin 29.5 PG Mean Corpuscular Hemoglobin 35.4 % Concent Red Cell Distribution Width 13.3 % Platelet Count 222 TH/MM3 Mean Platelet Volume 8.2 FL Neutrophils (%) (Auto) 78.2 % Lymphocytes (%) (Auto) 14.7 % Monocytes (%) (Auto) 6.1 % Eosinophils (%) (Auto) 0.5 % Basophils (%) (Auto) 0.5 % Neutrophils # (Auto) 8.1 TH/MM3 Lymphocytes # (Auto) 1.5 TH/MM3 Monocytes # (Auto) 0.6 TH/MM3 Eosinophils # (Auto) 0.1 TH/MM3 Basophils # (Auto) 0.0 TH/MM3 CBC Comment DIFF FINAL Differential Comment Sodium Level 138 MEQ/L Potassium Level 3.5 MEQ/L Chloride Level 103 MEQ/L Carbon Dioxide Level 26.0 MEQ/L Anion Gap 9 MEQ/L Blood Urea Nitrogen 4 MG/DL Creatinine 0.54 MG/DL Estimat Glomerular Filtration 171 ML/MIN Rate Random Glucose 83 MG/DL Calcium Level 9.1 MG/DL MDM Medical Decision Making Medical Screen Exam Complete: Yes Emergency Medical Condition: Yes Differential Diagnosis Nausea in , emesis and , electrolyte abnormality, hyperemesis gravidarum. Narrative Course Patient was roomed in the emergency department, she has vomited once in the emergency department productive of nonbilious nonbloody emesis. Her abdomen is benign. She has no vaginal complaints. She was given Benadryl and Zofran and had complete relief of her symptoms is feeling better. A liter of normal saline was given. Discussed with the patient symptomatically management home with Benadryl time. She will follow-up with her [employer]ATE [employer]TER AND INSPECTOR. At this point she is stable for discharge and is tolerating minimal sips of by mouth fluids. Discussed push by mouth fluid at home and returned ED criteria. Diagnosis Primary Impression: Nausea & vomiting Qualified Code: R11.2 - Nausea and vomiting, intractability of vomiting not specified, unspecified vomiting type Med/Other Pt SpecificInfo: Prescription(s) given Scripts Diphenhydramine 25 Mg Cap25 Mg PO Q6H PRN (NAUSEA) #20 CAP Ref 0 Prov:Darrius Steele MD 07/24/16 Disposition: DISCHARGE HOME Condition: Stable Darrius Steele MD Jul 24, 2016 16:22
[2016-07-24] MEDS ORDERED: ONDANSETRON HCL 4 MG/2 ML VIAL IV PUSH ONE (17:00)
[2016-07-24 17:13] LABS: AUTOMATED NEUTROPHIL # 8.1 TH/MM3 (1.8-7.7); BASOPHIL % 0.5 % (0.0-2.0); EOSINOPHIL # 0.1 TH/MM3 (0-0.4); EOSINOPHIL % 0.5 % (0.0-4.0); HEMATOCRIT 37.3 % (35.0-46.0); HEMO FLAGS DIFF FINAL; LYMPH % 14.7 % (9.0-44.0); LYMPHOCYTE # 1.5 TH/MM3 (1.0-4.8); MEAN CELL VOLUME 83.4 FL (80.0-100.0); MEAN CORPUSCULAR HEMOGLOBIN 29.5 PG (27.0-34.0); MEAN CORPUSCULAR HGB CONC 35.4 % (32.0-36.0); MONO % 6.1 % (0.0-8.0); NEUT % 78.2 % (16.0-70.0); PLATELET COUNT 222 TH/MM3 (150-450); RED BLOOD COUNT 4.47 MIL/MM3 (4.00-5.30); RED CELL DISTRIBUTION WIDTH 13.3 % (11.6-17.2); WHITE BLOOD COUNT 10.4 TH/MM3 (4.0-11.0)
[2016-07-24 17:31] LABS: POTASSIUM 3.5 MEQ/L (3.5-5.1)
[2016-07-24] MEDS ORDERED: DIPH25CA PO (18:09)
== END 2016-07-24 18:44 | disposition home or self-care (01) ==
LOC: NEPD 15:39
DX: O26.91 Pregnancy related conditions, unspecified, first trimester (principal); R11.2 Nausea with vomiting, unspecified; Z3A.08 8 weeks gestation of pregnancy; R53.1 Weakness
CPT/HCPCS: 80048; 85025; 96361; 96374; 96375; 99284; J1200; J2405; J7030

== ENCOUNTER 2016-11-25 13:44 | Emergency (ER) | payer MEDICAID ==
[~2016-11-25] VITALS: Ht 165.1 cm; Wt 78.5 kg
[2016-11-25] MEDS ORDERED: PNV11TAB (14:03)
[2016-11-25] MEDS ORDERED: MAGNESIUM HYDROXIDE SUSP 30 ML CUP PO ONE (14:30)
[2016-11-25] MEDS ORDERED: ACETAMINOPHEN 500 MG CPLT PO ONE (14:30)
--- NOTE | 2016-11-25 15:05 | PD ---
HPI Date Seen: Nov 25, 2016 Time Seen: 14:30 Travel History International Travel<30 Days: No Contact w/Intl Traveler<30Days: No Known Affected Area: No History of Present Illness HPI Pt is a 21 yo at 26 6/7 weeks based on EDC of 02-25-2017. Pt receives care at [facility]. Care previously uncomplicated. Reports with low abdominal pain starting this morning. Admits to nausea but no vomiting. Had diarrhea 2 days ago. No sick contacts. Active movements. No vaginal bleeding or leaking. Weeks Gestation: 26 Para: 0 : 1 History Past Medical History Medical History: Denies Significant Hx Past Surgical History Surgical History: No Previous Surgery Family History Family History: Negative Social History Alcohol Use: No Tobacco Use: No Substance Abuse: No Allergies-Medications (Allergen,Severity, Reaction): Coded Allergies: No Known Allergies (Unverified , 11/17/16) Home Meds Reported Medications Hne135/FA/Omega3/Dha/Fish Oil ( Gummies) 1 Each Tab.chew 11/25/16 Review of Systems Except as stated in HPI: all other systems reviewed are Neg Physical Exam Narrative GENERAL: Well-nourished, well-developed patient. SKIN: Warm and dry. HEAD: Normocephalic and atraumatic. EYES: No scleral icterus. No injection or drainage. ENT: No nasal drainage noted. Mucous membranes pink. Airway patent. NECK: Supple, trachea midline. No JVD. CARDIOVASCULAR: Regular rate and rhythm without murmurs, gallops, or rubs. RESPIRATORY: Breath sounds equal bilaterally. No accessory muscle use. BREASTS: Bilateral exam showed no masses , no retractions, no nipple discharge. ABDOMEN/GI: Abdomen soft, non-tender, bowel sounds present, no rebound, no guarding Gravid to [-] weeks size Fundal Height: [-] GENITOURINARY: External Genitalia: intact and normal in appearance BUS glands: [-] Cervix: [firm ] Dilatation: [closed Effacement: [uneffaced] Station: [high] Presentation: [-] Membranes: [intact] Uterine Contractions: [-] FHT's: Category: [1] Baseline: [130] Reactive: [-] Variability: [moderate] Decels: [none-] Stool felt in rectum EXTREMITIES: No cyanosis or edema. BACK: Nontender without obvious deformity. No CVA tenderness. NEUROLOGICAL: Awake and alert. Motor and sensory grossly within normal limits. Five out of 5 muscle strength in all muscle groups. Normal speech. Data Data Vital Signs Reviewed: Yes Orders Orders Magnesium Hydroxide Liq (Milk Of Magnesi (11/25/16 14:30) Acetaminophen (Tylenol) (11/25/16 14:30) MDM Interpretation(s) Pt reports low abdominal pain. No contractions noted on TOCO. Stool felt in rectum on vaginal exam Feels better after PO Tylenol/ Milk of Magnessium. No cervical change on recheck vaginal exam. Diagnosis Diagnosis: Primary Impression: Abdominal pain affecting Additional Impression: Constipation during Disposition: DISCHARGE HOME Condition: Good Storm Huggins MD Nov 25, 2016 15:05
[2016-12-15] MEDS ORDERED: METR500T10 PO (13:49)
== END 2016-11-25 15:40 | disposition home or self-care (01) ==
LOC: HOBED 13:44
DX: O26.893 Other specified pregnancy related conditions, third trimester (principal); R10.30 Lower abdominal pain, unspecified; K59.00 Constipation, unspecified; R11.0 Nausea; R19.7 Diarrhea, unspecified; Z3A.26 26 weeks gestation of pregnancy
CPT/HCPCS: 99283

== ENCOUNTER → 2016-12-10 | Outpatient (CLI) | payer MEDICAID ==
[~2016-12-10] MED LIST changes: -ACET500T36 PO; +METR500T10 PO; -ONDA4TAB7 SL; +PNV11TAB
== END ==
LOC: HPND 08:53
PROVIDERS: ATTEND Obstetrics & Gynecology
DX: O41.03X0 Oligohydramnios, third trimester, not applicable or unspecified (principal)
CPT/HCPCS: 76816

== ENCOUNTER 2016-12-22 02:33 | Emergency (ER) | payer MEDICAID ==
--- NOTE | 2016-12-22 03:42 | PD ---
HPI Chief Complaint nausea, vomiting Travel History International Travel<30 Days: No Contact w/Intl Traveler<30Days: No Known Affected Area: No History of Present Illness HPI 21-year-old , IUP at 30.5 care uncomplicated except for a history of asthma Patient presents complaining of the onset of nausea and vomiting at 1 PM on the afternoon of 12/21/16. She denies any ill contacts or known ingestion of spoiled food. She reports that she has had 1 episode of diarrhea and about 5 episodes of emesis but only one with food at 9pm; the rest were just "stomach acid." She reports that she last attempted to be at 9 PM which she was unable to tolerate and threw up. She denies any yellow or VB. She reports good movement. She denies any painful contractions. She reports some generalized cramping abdominal pain but denies uterine contractions or cramping. There are no aggravating or alleviating factors to the nausea, vomiting, and abdominal pain and no prior attempted treatments. Weeks Gestation: 30 Para: 0 : 1 History Past Medical History Narrative Medical Childhood asthma Obstetric History Obstetric History Past Surgical History Surgical History: No Previous Surgery Family History Family History: Negative Social History Alcohol Use: No Tobacco Use: No Substance Abuse: No Allergies-Medications (Allergen,Severity, Reaction): Coded Allergies: No Known Allergies (Unverified , 12/15/16) Home Meds Active Scripts Metronidazole (Metronidazole) 500 Mg Tab, 500 MG PO BID for Infection, #14 TAB 0 Refills Prov:Opal Evans 12/15/16 Reported Medications Agm412/FA/Omega3/Dha/Fish Oil ( Gummies) 1 Each Tab.chew 11/25/16 Review of Systems Except as stated in HPI: all other systems reviewed are Neg Gastrointestinal: Nausea, Vomiting, Diarrhea, Abdominal Pain Physical Exam Narrative GENERAL: Well-nourished, well-developed patient. SKIN: Warm and dry. HEAD: Normocephalic and atraumatic. EYES: No scleral icterus. No injection or drainage. ENT: No nasal drainage noted. Mucous membranes pink. Airway patent. NECK: Supple, trachea midline. No JVD. CARDIOVASCULAR: Regular rate and rhythm without murmurs, gallops, or rubs. RESPIRATORY: Breath sounds equal bilaterally. No accessory muscle use. BREASTS: Deferred ABDOMEN/GI: Abdomen soft, non-tender, bowel sounds present, no rebound, no guarding Gravid GENITOURINARY: Deferred FHT's: Baseline 130s with a category 1 heart rate tracing, good accelerations and no decelerations noted. Moderate long-term variability. heart rate tracing is reactive and appropriate for gestational age. EXTREMITIES: No cyanosis or edema. BACK: Nontender without obvious deformity. No CVA tenderness. NEUROLOGICAL: Awake and alert. Motor and sensory grossly within normal limits. Five out of 5 muscle strength in all muscle groups. Normal speech. Musculoskeletal: Grossly normal ROM, gait, muscle strength Psychiatric: Grossly normal memory and affect MDM Plan Assessment/plan: 1. IUP at 30.5 2. Nausea vomiting and diarrhea: Patient with only 1 episode of diarrhea since onset of illness was likely consistent with a mild gastroenteritis. Patient symptomatically improved with IV fluids and antiemetics. Strict nausea/ vomiting precautions. Patient was able to tolerate a by mouth challenge prior to discharge and reports she is feeling much better. She'll be discharged home with a BRAT diet and sublingual Zofran as needed. Mild hypokalemia was noted and the patient was given 40 mEq of potassium prior to discharge with a prescription to take an additional 40 mEq of potassium at lunch. 3. No evidence of labor, strict labor precautions. 4. well-being: Reassuring testing with FHR reassuring and appropriate for gestational age. NST reactive for gestational age. kick counts daily. 5. Follow-up with primary OB in 2-3 days or sooner if needed. 6. Thrombocytopenia: a mild thrombocytopenia was noted, the patient was instructed to follow up with the [facility] in 2-3 days for further discussion and evaluation Diagnosis Diagnosis: Primary Impression: 30 weeks gestation of Additional Impression: Gastroenteritis Disposition: 01 DISCHARGE HOME Condition: Good Patient Instructions: Labor (ED), Movement (ED), Nausea and Vomiting in (ED) Opal Jay MD Dec 22, 2016 03:42
[2016-12-22] MEDS ORDERED: ONDANSETRON HCL 4 MG/2 ML VIAL IV ONE (03:45)
[2016-12-22 04:07] LABS: HEMATOCRIT 34.4 % (35.0-46.0); MEAN CELL VOLUME 85.2 FL (80.0-100.0); MEAN CORPUSCULAR HEMOGLOBIN 29.4 PG (27.0-34.0); MEAN CORPUSCULAR HGB CONC 34.5 % (32.0-36.0); PLATELET COUNT 139 TH/MM3 (150-450); RED BLOOD COUNT 4.04 MIL/MM3 (4.00-5.30); RED CELL DISTRIBUTION WIDTH 13.5 % (11.6-17.2); REVIEW FLAG FINAL; WHITE BLOOD COUNT 12.5 TH/MM3 (4.0-11.0)
[2016-12-22 04:28] LABS: ALT (GPT) 14 U/L (10-53); ANION GAP 8 MEQ/L (5-15); AST (GOT) 13 U/L (15-37); BICARBONATE 21.8 MEQ/L (21.0-32.0); BLOOD UREA NITROGEN 4 MG/DL (7-18); CHLORIDE 108 MEQ/L (98-107); GLOMERULAR FILTRATION RATE 199 ML/MIN (>89); POTASSIUM 3.3 MEQ/L (3.5-5.1); SODIUM (NA) 138 MEQ/L (136-145)
[2016-12-22 04:30] LABS: ALKALINE PHOSPHATASE 130 U/L (45-117); TOTAL BILIRUBIN ADULT 0.2 MG/DL (0.2-1.0)
[2016-12-22] MEDS ORDERED: POTASSIUM CHLORIDE 20 MEQ CONTROLLED RELEASE TAB PO ONE (05:00)
== END 2016-12-22 05:11 | disposition home or self-care (01) ==
LOC: HOBED 02:33
DX: O99.613 Diseases of the digestive system complicating pregnancy, third trimester (principal); K52.9 Noninfective gastroenteritis and colitis, unspecified; O99.283 Endocrine, nutritional and metabolic diseases complicating pregnancy, third trimester; E87.6 Hypokalemia; O99.113 Other diseases of the blood and blood-forming organs and certain disorders involving the immune mechanism complicating pregnancy, third trimester; D69.6 Thrombocytopenia, unspecified; Z3A.30 30 weeks gestation of pregnancy
CPT/HCPCS: 80053; 85027; 96374; 99284; J2405

== ENCOUNTER 2017-02-02 13:15 | Inpatient (IN) | payer MEDICAID ==
[2017-02-02] VITALS (31 sets, daily range): BP systolic 116–149; BP diastolic 52–93; PULSE 65–116; RESP 16–20; TEMP 97.6–98.6
[~2017-02-02] VITALS: Ht 165.1 cm; Wt 84.8 kg
[~2017-02-02 13:15] MED LIST changes: +AMPI500C8 PO; -METR500T10 PO
--- NOTE | 2017-02-02 13:56 | PD ---
HPI Chief Complaint Pelvic Pressure Date Seen: Feb 02, 2017 Time Seen: 13:45 (Ag Montiel MD R2) Travel History International Travel<30 Days: No Contact w/Intl Traveler<30Days: No (Ag Montiel MD R2) History of Present Illness HPI 21-year-old at 36/5 weeks gestation presenting with constant pelvic pressure starting last night. Associated with some urinary frequency, no dysuria. Denies vaginal bleeding, leakage of fluid, contractions. Endorses movement. Denies chest pain or shortness of breath. care [facility] with [facility]. (Ag Montiel MD R2) History Past Medical History Narrative Medical Childhood asthma (Ag Montiel MD) Obstetric History Obstetric History G1 (Ag Montiel MD) Past Surgical History Surgical History: No Previous Surgery (Ag Montiel MD R2) Family History Family History: Negative (Ag Montiel MD) Social History Alcohol Use: No Tobacco Use: No Substance Abuse: No (Ag Montiel MD R2) Allergies-Medications (Allergen,Severity, Reaction): Coded Allergies: No Known Allergies (Unverified Allergy, Unknown, 02/02/17) Home Meds Reported Medications Lxn000/FA/Omega3/Dha/Fish Oil ( Gummies) 1 Each Tab.chew 11/25/16 Discontinued Scripts Ampicillin (Ampicillin) 500 Mg Cap, 500 MG PO QID for 7 Days, #28 CAP Prov:Supriya Crespo CNM [employer] MANAGER 01/28/17 Review of Systems Except as stated in HPI: all other systems reviewed are Neg (Ag Montiel MD R2) Physical Exam Vital Signs Date Time Temp Pulse Resp B/P (MAP) Pulse Ox O2 Delivery O2 Flow Rate FiO2 02/02/17 13:50 90 02/02/17 13:45 91 02/02/17 13:40 85 02/02/17 13:35 97.6 97 02/02/17 13:34 20 02/02/17 13:30 78 02/02/17 13:30 65 02/02/17 13:30 143/73 (96) Narrative GENERAL: Well-nourished, well-developed patient. SKIN: Warm and dry. HEAD: Normocephalic and atraumatic. EYES: No scleral icterus. No injection or drainage. ENT: No nasal drainage noted. Mucous membranes pink. Airway patent. CARDIOVASCULAR: Regular rate and rhythm without murmurs, gallops, or rubs. RESPIRATORY: Breath sounds equal bilaterally. No accessory muscle use. ABDOMEN/GI: Abdomen soft, non-tender, no rebound, no guarding GENITOURINARY: Cervix: posterior, rotated toward left Dilation: 1 cm Effacement: 60% Presentation: Vertex Membranes: Intact Contractions: None FHT's: Category: 1 Baseline: 135 Reactive: Y Variability: moderate Decels: N EXTREMITIES: No cyanosis or edema. NEUROLOGICAL: Awake and alert. Motor and sensory grossly within normal limits. Normal speech. (Ag Montiel MD R2) Data Data Vital Signs Reviewed: Yes Orders Orders Vital Signs (Adult) .ON ADMISSION (02/02/17 13:25) ^ Labor Status (02/02/17 13:25) ^ Non Stress Test (02/02/17 13:25) ^ Hydration (02/02/17 13:25) Urinalysis - C+S If Indicated (02/02/17 13:42) Group B Strep: Positive Labs Laboratory Tests Test 02/02/17 13:37 02/02/17 14:15 Urine Color YELLOW Urine Turbidity CLEAR Urine pH 6.0 Urine Specific [place] 1.019 Urine Protein TRACE mg/dL Urine Glucose (UA) NEG mg/dL Urine Ketones NEG mg/dL Urine Occult Blood NEG Urine Nitrite NEG Urine Bilirubin NEG Urine Urobilinogen LESS THAN 2.0 MG/DL Urine Leukocyte Esterase TRACE Urine RBC 1 /hpf Urine WBC 1 /hpf Urine Squamous Epithelial Cells 4 /hpf Urine Bacteria OCC /hpf Urine Mucus FEW /lpf Microscopic Urinalysis Comment CULT NOT INDICATED Urine Random Creatinine 154 MG/DL Urine Random Total Protein 13 MG/DL Urine Protein/Creatinine Ratio 0.08 White Blood Count 11.9 TH/MM3 Red Blood Count 4.01 MIL/MM3 Hemoglobin 11.4 GM/DL Hematocrit 33.6 % Mean Corpuscular Volume 83.7 FL Mean Corpuscular Hemoglobin 28.4 PG Mean Corpuscular Hemoglobin Concent 33.9 % Red Cell Distribution Width 13.3 % Platelet Count 106 TH/MM3 Mean Platelet Volume 10.4 FL Blood Urea Nitrogen 5 MG/DL Creatinine 0.53 MG/DL Random Glucose 93 MG/DL Total Protein 6.5 GM/DL Albumin 2.6 GM/DL Calcium Level 8.2 MG/DL Uric Acid 5.0 MG/DL Alkaline Phosphatase 214 U/L Aspartate Amino Transf (AST/SGOT) 17 U/L Alanine Aminotransferase (ALT/SGPT) 15 U/L Total Bilirubin 0.3 MG/DL Sodium Level 136 MEQ/L Potassium Level 3.4 MEQ/L Chloride Level 105 MEQ/L Carbon Dioxide Level 21.0 MEQ/L Anion Gap 10 MEQ/L Estimat Glomerular Filtration Rate 173 ML/MIN (Ag Montiel MD R2) MDM Medical Record Reviewed: Yes Narrative Course / MDM 21-year-old at 36/5 weeks gestation presenting with pelvic pressure and elevated blood pressure reading #1 IUP Category 1 tracing, reassuring #2 GBS positive #3 elevated blood pressure reading A couple blood pressures in the clinic and also been elevated, but typically normalize. Patient was little bit anxious when she first got here. BP 130s-140s and stable, no pre-eclampsia symptoms (ZAVALA, vision change, epigastric pain, edema) - CBC showing Plt of 106 - CMP wnl - Protein/Creatinine ration wnl - 24 hour urine - Place under 24 hour obs. Monitor BP. Repeat labs in the morning. #4 false labor Constant pelvic pressure, could be due to station versus round ligament pain versus [place] contractions UA negative for UTI - Oral hydration - Oral Health Therapist on early labor signs (Ag Montiel MD R2) Attending Attestation Personally evaluated and examined the patient and participated in all langford decision making portions of her care. The patient will be admitted for further evaluation to rule out preeclampsia with the finding of thrombocytopenia. Her blood work was otherwise normal and blood pressures improved with bed rest. We' ll monitor closely. (Opal Jay MD) Diagnosis Diagnosis: Primary Impression: Elevated BP without diagnosis of hypertension Additional Impressions: Thrombocytopenia False labor before 37 completed weeks of gestation Qualified Codes: O47.03 - False labor before 37 completed weeks of gestation, third trimester Ag Montiel MD R2 Feb 02, 2017 13:56 Opal Jay MD Feb 03, 2017 00:25
[2017-02-02 14:28] LABS: BACTERIA, URINE OCC /hpf; BILIRUBIN, URINE NEG (NEG); BLOOD, URINE NEG (NEG); GLUCOSE,URINE NEG (NEG); KETONE, URINE NEG (NEG); MUCUS URINE FEW /lpf (OCC); NITRITE,URINE NEG (NEG); SQUAMOUS EPITHELIAL CELL URINE 4 /hpf (0-5); URINE COLOR YELLOW (YELLW/STRAW); URINE LEUKOCYTE ESTERASE TRACE (NEG)
[2017-02-02 14:42] LABS: HEMATOCRIT 33.6 % (35.0-46.0); HEMOGLOBIN 11.4 GM/DL (11.6-15.3); MEAN CELL VOLUME 83.7 FL (80.0-100.0); MEAN CORPUSCULAR HEMOGLOBIN 28.4 PG (27.0-34.0); MEAN CORPUSCULAR HGB CONC 33.9 % (32.0-36.0); MEAN PLATELET VOLUME 10.4 FL (7.0-11.0); PLATELET COUNT 106 TH/MM3 (150-450); RED BLOOD COUNT 4.01 MIL/MM3 (4.00-5.30); RED CELL DISTRIBUTION WIDTH 13.3 % (11.6-17.2); WHITE BLOOD COUNT 11.9 TH/MM3 (4.0-11.0)
[2017-02-02 15:09] LABS: ALBUMIN 2.6 GM/DL (3.4-5.0); ALT (GPT) 15 U/L (10-53); AST (GOT) 17 U/L (15-37); BLOOD UREA NITROGEN 5 MG/DL (7-18); CALCIUM 8.2 MG/DL (8.5-10.1); CHLORIDE 105 MEQ/L (98-107); CREATININE 0.53 MG/DL (0.50-1.00); GLOMERULAR FILTRATION RATE 173 ML/MIN (>89); GLUCOSE,RANDOM 93 MG/DL (74-106); SODIUM (NA) 136 MEQ/L (136-145)
[2017-02-02 15:12] LABS: ALKALINE PHOSPHATASE 214 U/L (45-117); TOTAL BILIRUBIN ADULT 0.3 MG/DL (0.2-1.0); TOTAL PROTEIN 6.5 GM/DL (6.4-8.2)
--- NOTE | 2017-02-02 15:58 | HHI.PR ---
[employer] DISTRIBUTOR Note Note HPI HPI Chief Complaint Pelvic Pressure Date Seen: Feb 02, 2017 Time Seen: 13:45 Travel History International Travel<30 Days: No Contact w/Intl Traveler<30Days: No History of Present Illness HPI 21-year-old at 36/5 weeks gestation presenting with constant pelvic pressure starting last night. Associated with some urinary frequency, no dysuria. Denies vaginal bleeding, leakage of fluid, contractions. Endorses movement. Denies chest pain or shortness of breath. care [facility] with [facility]. History (Limited) History Past Medical History Narrative Medical Childhood asthma Obstetric History Obstetric History G1 Past Surgical History Surgical History: No Previous Surgery Family History Family History: Negative Social History Alcohol Use: No Tobacco Use: No Substance Abuse: No Allergies-Medications Allergies-Medications (Allergen,Severity, Reaction): Coded Allergies: No Known Allergies (Unverified , 01/25/17) Home Meds Reported Medications Esm143/FA/Omega3/Dha/Fish Oil ( Gummies) 1 Each Tab.chew 11/25/16 Discontinued Scripts Ampicillin (Ampicillin) 500 Mg Cap, 500 MG PO QID for 7 Days, #28 CAP Prov:Supriya Crespo CNM DIRECTOR OF INCOME TAX 01/28/17 ROS Review of Systems Except as stated in HPI: all other systems reviewed are Neg Physical Exam Physical Exam Vital Signs Date Time Temp Pulse Resp B/P (MAP) Pulse Ox O2 Delivery O2 Flow Rate FiO2 02/02/17 13:50 90 02/02/17 13:45 91 02/02/17 13:40 85 02/02/17 13:35 97.6 97 02/02/17 13:34 20 02/02/17 13:30 78 02/02/17 13:30 65 02/02/17 13:30 143/73 (96) Narrative GENERAL: Well-nourished, well-developed patient. SKIN: Warm and dry. HEAD: Normocephalic and atraumatic. EYES: No scleral icterus. No injection or drainage. ENT: No nasal drainage noted. Mucous membranes pink. Airway patent. CARDIOVASCULAR: Regular rate and rhythm without murmurs, gallops, or rubs. RESPIRATORY: Breath sounds equal bilaterally. No accessory muscle use. ABDOMEN/GI: Abdomen soft, non-tender, no rebound, no guarding GENITOURINARY: Cervix: posterior, rotated toward left Dilation: 1 cm Effacement: 60% Presentation: Vertex Membranes: Intact Contractions: None FHT's: Category: 1 Baseline: 135 Reactive: Y Variability: moderate Decels: N EXTREMITIES: No cyanosis or edema. NEUROLOGICAL: Awake and alert. Motor and sensory grossly within normal limits. Normal speech. Data Data Data Vital Signs Reviewed: Yes Orders Orders Vital Signs (Adult) .ON ADMISSION (02/02/17 13:25) ^ Labor Status (02/02/17 13:25) ^ Non Stress Test (02/02/17 13:25) ^ Hydration (02/02/17 13:25) Urinalysis - C+S If Indicated (02/02/17 13:42) Group B Strep: Positive Labs Laboratory Tests Test 02/02/17 13:37 02/02/17 14:15 Urine Color YELLOW Urine Turbidity CLEAR Urine pH 6.0 Urine Specific [place] 1.019 Urine Protein TRACE mg/dL Urine Glucose (UA) NEG mg/dL Urine Ketones NEG mg/dL Urine Occult Blood NEG Urine Nitrite NEG Urine Bilirubin NEG Urine Urobilinogen LESS THAN 2.0 MG/DL Urine Leukocyte Esterase TRACE Urine RBC 1 /hpf Urine WBC 1 /hpf Urine Squamous Epithelial Cells 4 /hpf Urine Bacteria OCC /hpf Urine Mucus FEW /lpf Microscopic Urinalysis Comment CULT NOT INDICATED Urine Random Creatinine 154 MG/DL Urine Random Total Protein 13 MG/DL Urine Protein/Creatinine Ratio 0.08 White Blood Count 11.9 TH/MM3 Red Blood Count 4.01 MIL/MM3 Hemoglobin 11.4 GM/DL Hematocrit 33.6 % Mean Corpuscular Volume 83.7 FL Mean Corpuscular Hemoglobin 28.4 PG Mean Corpuscular Hemoglobin Concent 33.9 % Red Cell Distribution Width 13.3 % Platelet Count 106 TH/MM3 Mean Platelet Volume 10.4 FL Blood Urea Nitrogen 5 MG/DL Creatinine 0.53 MG/DL Random Glucose 93 MG/DL Total Protein 6.5 GM/DL Albumin 2.6 GM/DL Calcium Level 8.2 MG/DL Uric Acid 5.0 MG/DL Alkaline Phosphatase 214 U/L Aspartate Amino Transf (AST/SGOT) 17 U/L Alanine Aminotransferase (ALT/SGPT) 15 U/L Total Bilirubin 0.3 MG/DL Sodium Level 136 MEQ/L Potassium Level 3.4 MEQ/L Chloride Level 105 MEQ/L Carbon Dioxide Level 21.0 MEQ/L Anion Gap 10 MEQ/L Estimat Glomerular Filtration Rate 173 ML/MIN [facility] Medical Record Reviewed: Yes Narrative Course / MDM 21-year-old at 36/5 weeks gestation presenting with pelvic pressure and elevated blood pressure reading #1 IUP Category 1 tracing, reassuring #2 GBS positive #3 elevated blood pressure reading A couple blood pressures in the clinic and also been elevated, but typically normalize. Patient was little bit anxious when she first got here. BP 130s-140s and stable, no pre-eclampsia symptoms (ZAVALA, vision change, epigastric pain, edema) - CBC showing Plt of 106 - CMP wnl - Protein/Creatinine ration wnl - 24 hour urine - Place under 24 hour obs. Monitor BP. Repeat labs in the morning. #4 false labor Constant pelvic pressure, could be due to station versus round ligament pain versus [place] Betancourt contractions UA negative for UTI - Oral hydration - Maintenance Painter on early labor signs Diagnosis Diagnosis: Primary Impression: Elevated BP without diagnosis of hypertension Additional Impressions: Thrombocytopenia False labor before 37 completed weeks of gestation Qualified Codes: O47.03 - False labor before 37 completed weeks of gestation, third trimester (Ag Mnotiel MD R2) Note I personally saw and examined the patient and participated in all langford decision making portions of her care. (Opal Jay MD) Ag Montiel MD R2 Feb 02, 2017 15:58 Opal Jay MD Feb 03, 2017 00:26
--- NOTE | 2017-02-02 15:58 | HHI.PR ---
ACID BATH MIXER Note Note HPI HPI Chief Complaint Pelvic Pressure Date Seen: Feb 02, 2017 Time Seen: 13:45 Travel History International Travel<30 Days: No Contact w/Intl Traveler<30Days: No History of Present Illness HPI 21-year-old at 36/5 weeks gestation presenting with constant pelvic pressure starting last night. Associated with some urinary frequency, no dysuria. Denies vaginal bleeding, leakage of fluid, contractions. Endorses movement. Denies chest pain or shortness of breath. care is with care for women. History (Limited) History Past Medical History Narrative Medical Childhood asthma Obstetric History Obstetric History G1 Past Surgical History Surgical History: No Previous Surgery Family History Family History: Negative Social History Alcohol Use: No Tobacco Use: No Substance Abuse: No Allergies-Medications Allergies-Medications (Allergen,Severity, Reaction): Coded Allergies: No Known Allergies (Unverified , 01/25/17) Home Meds Reported Medications Dav808/FA/Omega3/Dha/Fish Oil ( Gummies) 1 Each Tab.chew 11/25/16 Discontinued Scripts Ampicillin (Ampicillin) 500 Mg Cap, 500 MG PO QID for 7 Days, #28 CAP Prov:Supriya Crespo CNM FACE MAN 01/28/17 ROS Review of Systems Except as stated in HPI: all other systems reviewed are Neg Physical Exam Physical Exam Vital Signs Date Time Temp Pulse Resp B/P (MAP) Pulse Ox O2 Delivery O2 Flow Rate FiO2 02/02/17 13:50 90 02/02/17 13:45 91 02/02/17 13:40 85 02/02/17 13:35 97.6 97 02/02/17 13:34 20 02/02/17 13:30 78 02/02/17 13:30 65 02/02/17 13:30 143/73 (96) Narrative GENERAL: Well-nourished, well-developed patient. SKIN: Warm and dry. HEAD: Normocephalic and atraumatic. EYES: No scleral icterus. No injection or drainage. ENT: No nasal drainage noted. Mucous membranes pink. Airway patent. CARDIOVASCULAR: Regular rate and rhythm without murmurs, gallops, or rubs. RESPIRATORY: Breath sounds equal bilaterally. No accessory muscle use. ABDOMEN/GI: Abdomen soft, non-tender, no rebound, no guarding GENITOURINARY: Cervix: posterior, rotated toward left Dilation: 1 cm Effacement: 60% Presentation: Vertex Membranes: Intact Contractions: None FHT's: Category: 1 Baseline: 135 Reactive: Y Variability: moderate Decels: N EXTREMITIES: No cyanosis or edema. NEUROLOGICAL: Awake and alert. Motor and sensory grossly within normal limits. Normal speech. Data Data Data Vital Signs Reviewed: Yes Orders Orders Vital Signs (Adult) .ON ADMISSION (02/02/17 13:25) ^ Labor Status (02/02/17 13:25) ^ Non Stress Test (02/02/17 13:25) ^ Hydration (02/02/17 13:25) Urinalysis - C+S If Indicated (02/02/17 13:42) Group B Strep: Positive Labs Laboratory Tests Test 02/02/17 13:37 02/02/17 14:15 Urine Color YELLOW Urine Turbidity CLEAR Urine pH 6.0 Urine Specific [place] 1.019 Urine Protein TRACE mg/dL Urine Glucose (UA) NEG mg/dL Urine Ketones NEG mg/dL Urine Occult Blood NEG Urine Nitrite NEG Urine Bilirubin NEG Urine Urobilinogen LESS THAN 2.0 MG/DL Urine Leukocyte Esterase TRACE Urine RBC 1 /hpf Urine WBC 1 /hpf Urine Squamous Epithelial Cells 4 /hpf Urine Bacteria OCC /hpf Urine Mucus FEW /lpf Microscopic Urinalysis Comment CULT NOT INDICATED Urine Random Creatinine 154 MG/DL Urine Random Total Protein 13 MG/DL Urine Protein/Creatinine Ratio 0.08 White Blood Count 11.9 TH/MM3 Red Blood Count 4.01 MIL/MM3 Hemoglobin 11.4 GM/DL Hematocrit 33.6 % Mean Corpuscular Volume 83.7 FL Mean Corpuscular Hemoglobin 28.4 PG Mean Corpuscular Hemoglobin Concent 33.9 % Red Cell Distribution Width 13.3 % Platelet Count 106 TH/MM3 Mean Platelet Volume 10.4 FL Blood Urea Nitrogen 5 MG/DL Creatinine 0.53 MG/DL Random Glucose 93 MG/DL Total Protein 6.5 GM/DL Albumin 2.6 GM/DL Calcium Level 8.2 MG/DL Uric Acid 5.0 MG/DL Alkaline Phosphatase 214 U/L Aspartate Amino Transf (AST/SGOT) 17 U/L Alanine Aminotransferase (ALT/SGPT) 15 U/L Total Bilirubin 0.3 MG/DL Sodium Level 136 MEQ/L Potassium Level 3.4 MEQ/L Chloride Level 105 MEQ/L Carbon Dioxide Level 21.0 MEQ/L Anion Gap 10 MEQ/L Estimat Glomerular Filtration Rate 173 ML/MIN [facility] Medical Record Reviewed: Yes Narrative Course / MDM 21-year-old at 36/5 weeks gestation presenting with pelvic pressure and elevated blood pressure reading #1 IUP Category 1 tracing, reassuring #2 GBS positive #3 elevated blood pressure reading A couple blood pressures in the clinic and also been elevated, but typically normalize. Patient was little bit anxious when she first got here. BP 130s-140s and stable, no pre-eclampsia symptoms (ZAVALA, vision change, epigastric pain, edema) - CBC showing Plt of 106 - CMP wnl - Protein/Creatinine ration wnl - 24 hour urine - Place under 24 hour obs. Monitor BP. Repeat labs in the morning. #4 false labor Constant pelvic pressure, could be due to station versus round ligament pain versus Burnett Betancourt contractions UA negative for UTI - Oral hydration - [employer] on early labor signs Diagnosis Diagnosis: Primary Impression: Elevated BP without diagnosis of hypertension Additional Impressions: Thrombocytopenia False labor before 37 completed weeks of gestation Qualified Codes: O47.03 - False labor before 37 completed weeks of gestation, third trimester (Ag Montiel MD R2) Note I personally saw and examined the patient and participated in all [place] decision making portions of her care. (Opal Jay MD) Ag Montiel MD R2 Feb 02, 2017 15:58 Opal Jay MD Feb 03, 2017 00:26
[2017-02-02] MEDS ORDERED: ZOLPIDEM TARTRATE 5 MG TAB PO PRN ×2 (21:00)
[2017-02-03] VITALS (12 sets, daily range): BP systolic 131–143; BP diastolic 69–91; PULSE 59–110; RESP 16; TEMP 98.1–98.6
[2017-02-03] MEDS: ACETAMINOPHEN 325 MG TAB PO PRN ×4 (04:00→07:54)
--- NOTE | 2017-02-03 08:57 | PD.OB.ANTE ---
Subjective Diagnosis: (1) Thrombocytopenia Diagnosis: Principal (2) Elevated BP without diagnosis of hypertension Diagnosis: Principal (3) False labor before 37 completed weeks of gestation Diagnosis: Principal Interval History Patient is doing well this AM. Complains of ZAVALA, but improved with Tylenol. She denies vision changes, CP, SOB, and swelling. Antepartum ROS: Reports: movement normal, Contractions (crystal- garcia ) , Denies: Loss of fluid, Vaginal bleeding Objective Vital Signs Vital Signs Date Time Temp Pulse Resp B/P (MAP) Pulse Ox O2 Delivery O2 Flow Rate FiO2 02/03/17 08:01 64 132/82 (99) 02/03/17 07:59 98.6 02/03/17 04:00 16 02/03/17 03:58 79 137/88 (104) 02/02/17 23:02 79 116/52 (73) 02/02/17 23:02 16 02/02/17 19:20 90 16 127/82 (97) 02/02/17 19:20 98.4 02/02/17 16:00 137/72 (93) 02/02/17 16:00 76 02/02/17 16:00 98.6 18 02/02/17 15:35 85 02/02/17 15:30 116 02/02/17 15:30 88 142/92 (109) 02/02/17 15:25 84 02/02/17 15:20 83 02/02/17 15:20 84 138/84 (102) 02/02/17 15:15 79 02/02/17 15:10 99 02/02/17 15:10 88 141/87 (105) 02/02/17 15:05 80 02/02/17 15:00 94 02/02/17 15:00 87 141/93 (109) 02/02/17 14:55 85 02/02/17 14:51 128/61 (83) 02/02/17 14:51 95 02/02/17 14:50 72 02/02/17 14:45 92 02/02/17 14:40 93 02/02/17 14:40 87 145/87 (106) 02/02/17 14:35 85 02/02/17 14:30 88 02/02/17 14:25 74 02/02/17 14:20 87 02/02/17 14:20 97 148/79 (102) 02/02/17 14:16 91 135/80 (98) 02/02/17 14:15 99 02/02/17 14:09 68 149/89 (109) 02/02/17 14:00 90 02/02/17 13:55 93 02/02/17 13:50 90 02/02/17 13:45 91 02/02/17 13:40 85 02/02/17 13:35 97.6 97 02/02/17 13:34 20 02/02/17 13:30 78 02/02/17 13:30 65 02/02/17 13:30 143/73 (96) Lab & Micro Results Test 02/02/17 13:37 02/02/17 14:15 Urine Color YELLOW Urine Turbidity CLEAR Urine pH 6.0 Urine Specific [place] 1.019 Urine Protein TRACE mg/dL Urine Glucose (UA) NEG mg/dL Urine Ketones NEG mg/dL Urine Occult Blood NEG Urine Nitrite NEG Urine Bilirubin NEG Urine Urobilinogen LESS THAN 2.0 MG/DL Urine Leukocyte Esterase TRACE Urine RBC 1 /hpf Urine WBC 1 /hpf Urine Squamous Epithelial Cells 4 /hpf Urine Bacteria OCC /hpf Urine Mucus FEW /lpf Microscopic Urinalysis Comment CULT NOT INDICATED Urine Random Creatinine 154 MG/DL Urine Random Total Protein 13 MG/DL Urine Protein/Creatinine Ratio 0.08 Urine Opiates Screen NEG Urine Barbiturates Screen NEG Urine Amphetamines Screen NEG Urine Benzodiazepines Screen NEG Urine Cocaine Screen NEG Urine Cannabinoids Screen NEG White Blood Count 11.9 TH/MM3 Red Blood Count 4.01 MIL/MM3 Hemoglobin 11.4 GM/DL Hematocrit 33.6 % Mean Corpuscular Volume 83.7 FL Mean Corpuscular Hemoglobin 28.4 PG Mean Corpuscular Hemoglobin Concent 33.9 % Red Cell Distribution Width 13.3 % Platelet Count 106 TH/MM3 Mean Platelet Volume 10.4 FL Blood Urea Nitrogen 5 MG/DL Creatinine 0.53 MG/DL Random Glucose 93 MG/DL Total Protein 6.5 GM/DL Albumin 2.6 GM/DL Calcium Level 8.2 MG/DL Uric Acid 5.0 MG/DL Alkaline Phosphatase 214 U/L Aspartate Amino Transf (AST/SGOT) 17 U/L Alanine Aminotransferase (ALT/SGPT) 15 U/L Total Bilirubin 0.3 MG/DL Sodium Level 136 MEQ/L Potassium Level 3.4 MEQ/L Chloride Level 105 MEQ/L Carbon Dioxide Level 21.0 MEQ/L Anion Gap 10 MEQ/L Estimat Glomerular Filtration Rate 173 ML/MIN Physical Exam GENERAL: Well-nourished, well-developed patient. CARDIOVASCULAR: Regular rate and rhythm without murmurs, gallops, or rubs. RESPIRATORY: Breath sounds equal bilaterally. No accessory muscle use. ABDOMEN/GI: Abdomen soft, non-tender. FHT's: Category: 1 Baseline: 110s Reactive: yes Variability: moderate Decels: no EXTREMITIES: No cyanosis or edema, non-tender, without signs of DVT. Assessment and Plan Assessment and Plan 21-year-old at 36/6 weeks gestation presenting with pelvic pressure and elevated blood pressure reading #1 IUP Category 1 tracing, reassuring #2 GBS positive #3 elevated blood pressure reading A couple blood pressures in the clinic and also been elevated, but typically normalize. BP stable 116-137 for past 24hrs, no pre-eclampsia symptoms (vision change, epigastric pain, edema) - CBC showing Plt of 106 - CMP wnl - Protein/Creatinine ration wnl - 24 hour urine will be completed at 13:42 today -will repeat CBC at 13:45 today #4 false labor Constant pelvic pressure, could be due to station versus round ligament pain versus Crystal Garcia contractions UA negative for UTI - Oral hydration - Contemporary [employer] on early labor signs Fifi Johnson MD R1 Feb 03, 2017 08:57
[2017-02-03] MEDS ORDERED: INFLUENZA VIRUS VACCINE (QUADRIVALENT) 0.5 ML SYR IM ONE ×2 (10:00)
[2017-02-03 14:33] LABS: AUTOMATED NEUTROPHIL # 7.5 TH/MM3 (1.8-7.7); BASOPHIL % 0.4 % (0.0-2.0); EOSINOPHIL # 0.1 TH/MM3 (0-0.4); HEMATOCRIT 34.9 % (35.0-46.0); HEMOGLOBIN 11.7 GM/DL (11.6-15.3); LYMPH % 16.9 % (9.0-44.0); LYMPHOCYTE # 1.8 TH/MM3 (1.0-4.8); MEAN CELL VOLUME 84.9 FL (80.0-100.0); MEAN CORPUSCULAR HEMOGLOBIN 28.4 PG (27.0-34.0); MEAN CORPUSCULAR HGB CONC 33.4 % (32.0-36.0); MEAN PLATELET VOLUME 10.3 FL (7.0-11.0); MONO % 9.1 % (0.0-8.0); MONOCYTE # 0.9 TH/MM3 (0-0.9); NEUT % 72.6 % (16.0-70.0); PLATELET COUNT 108 TH/MM3 (150-450); RED BLOOD COUNT 4.12 MIL/MM3 (4.00-5.30); RED CELL DISTRIBUTION WIDTH 13.5 % (11.6-17.2); WHITE BLOOD COUNT 10.4 TH/MM3 (4.0-11.0)
[2017-02-03] MEDS ORDERED: LACTATED RINGER'S 1000 ML INJ 1,000 ML IV PRN ×2 (22:19)
--- NOTE | 2017-02-03 22:23 | HHI.PR ---
PREPARATION SUPERVISOR CANNING Note Note Antepartum Plan of Care Note Pt's 24hr urine protein collection was <300mg. She was counseled that she ruled out for preE but given continued mild range BPs, she meets criteria for gHTN. We reviewed that the recommendations for gHTN are delivery at 37.0wks. Pt will be 37.0wks tmw after midnight. She was counseled on IOL. She is 1/70/- 3 and posterolateral. Will initiate pitocin. All questions were answered and pt agreed with the plan of care. She has been on continuous monitoring and has maintained cat 1 tracing. Can d/c until induction starts. Ronnie Saul MD Feb 03, 2017 22:23
[2017-02-03] MEDS ORDERED: OXYTOCIN 30 UNITS-500ML PREMIX 500 ML IV SCH ×2 (22:30)
[2017-02-03] MEDS ORDERED: MINERAL OIL 10 ML VIAL TOPICAL PRN ×2 (22:30)
[2017-02-03] MEDS ORDERED: LIDOCAINE HCL 1% 50 ML VIAL INFIL PRN ×2 (22:30)
[2017-02-03] MEDS ORDERED: OXYTOCIN 30 UNITS-500ML PREMIX 500 ML IV ONE ×2 (22:30)
[2017-02-03] MEDS ORDERED: CITRIC ACID-SODIUM CITRATE LIQ 30 ML UDC PO SCH ×2 (22:30)
[2017-02-03] MEDS ORDERED: LIDOCAINE HCL 1% 50 ML VIAL I-DERMAL PRN ×2 (22:30)
[2017-02-03] MEDS ORDERED: SODIUM CHLORID 0.9% 500 ML INJ 500 ML IV PRN ×2 (22:30)
[2017-02-03] MEDS ORDERED: ONDANSETRON HCL 4 MG/2 ML VIAL IV PUSH PRN ×2 (22:30)
[2017-02-03] MEDS ORDERED: SODIUM CHLOR 0.9% 1000 ML INJ 1,000 ML IV PRN ×2 (22:39)
[2017-02-04] VITALS (72 sets, daily range): BP systolic 103–170; BP diastolic 60–146; PULSE 52–205; RESP 14–18; TEMP 98–98.4
[2017-02-04] MEDS: LACTATED RINGER'S 1000 ML INJ 1,000 ML IV SCH ×6 (04:21→17:31)
[2017-02-04 04:47] LABS: AUTOMATED NEUTROPHIL # 7.9 TH/MM3 (1.8-7.7); BASOPHIL % 0.4 % (0.0-2.0); EOSINOPHIL # 0.1 TH/MM3 (0-0.4); EOSINOPHIL % 0.8 % (0.0-4.0); HEMATOCRIT 35.3 % (35.0-46.0); HEMOGLOBIN 11.9 GM/DL (11.6-15.3); LYMPH % 21.2 % (9.0-44.0); LYMPHOCYTE # 2.4 TH/MM3 (1.0-4.8); MEAN CELL VOLUME 83.9 FL (80.0-100.0); MEAN CORPUSCULAR HEMOGLOBIN 28.3 PG (27.0-34.0); MEAN CORPUSCULAR HGB CONC 33.7 % (32.0-36.0); MONO % 7.7 % (0.0-8.0); MONOCYTE # 0.9 TH/MM3 (0-0.9); NEUT % 69.9 % (16.0-70.0); PLATELET COUNT 109 TH/MM3 (150-450); RED CELL DISTRIBUTION WIDTH 13.3 % (11.6-17.2); WHITE BLOOD COUNT 11.3 TH/MM3 (4.0-11.0)
--- NOTE | 2017-02-04 12:29 | PD.OB.ANTE ---
Subjective Diagnosis: (1) Thrombocytopenia Diagnosis: Principal (2) Elevated BP without diagnosis of hypertension Diagnosis: Principal (3) False labor before 37 completed weeks of gestation Diagnosis: Principal Interval History Pt has been on Pitocin since 4am. Feels 'cramping ' intermittently. Objective Vital Signs Vital Signs Date Time Temp Pulse Resp B/P (MAP) Pulse Ox O2 Delivery O2 Flow Rate FiO2 02/04/17 11:13 55 139/89 (106) 02/04/17 10:39 80 136/87 (103) 02/04/17 10:32 64 02/04/17 10:01 54 142/80 (100) 02/04/17 10:00 98.4 02/04/17 09:58 16 02/04/17 09:56 57 143/87 (105) 02/04/17 05:59 72 142/99 (113) 02/04/17 05:11 58 145/84 (104) 02/04/17 04:13 98.1 14 02/04/17 04:08 72 143/86 (105) 02/03/17 19:43 98.3 16 02/03/17 19:31 92 131/69 (89) 02/03/17 17:00 98.1 02/03/17 16:20 59 143/91 (108) 02/03/17 14:05 87 143/90 (107) 02/03/17 14:02 110 Lab & Micro Results Test 02/03/17 13:42 02/03/17 13:54 02/03/17 15:15 02/04/17 04:15 Urine Total Volume 24 Hours 2050 ML Urine Total Protein 24 Hour 168 MG/24HR White Blood Count 10.4 TH/MM3 11.3 TH/MM3 Red Blood Count 4.12 MIL/MM3 4.20 MIL/MM3 Hemoglobin 11.7 GM/DL 11.9 GM/DL Hematocrit 34.9 % 35.3 % Mean Corpuscular Volume 84.9 FL 83.9 FL Mean Corpuscular Hemoglobin 28.4 PG 28.3 PG Mean Corpuscular Hemoglobin Concent 33.4 % 33.7 % Red Cell Distribution Width 13.5 % 13.3 % Platelet Count 108 TH/MM3 109 TH/MM3 Mean Platelet Volume 10.3 FL 10.0 FL Neutrophils (%) (Auto) 72.6 % 69.9 % Lymphocytes (%) (Auto) 16.9 % 21.2 % Monocytes (%) (Auto) 9.1 % 7.7 % Eosinophils (%) (Auto) 1.0 % 0.8 % Basophils (%) (Auto) 0.4 % 0.4 % Neutrophils # (Auto) 7.5 TH/MM3 7.9 TH/MM3 Lymphocytes # (Auto) 1.8 TH/MM3 2.4 TH/MM3 Monocytes # (Auto) 0.9 TH/MM3 0.9 TH/MM3 Eosinophils # (Auto) 0.1 TH/MM3 0.1 TH/MM3 Basophils # (Auto) 0.0 TH/MM3 0.0 TH/MM3 CBC Comment DIFF FINAL DIFF FINAL Differential Comment Lab Scanned Report Lab Reports - Other [id number] Physical Exam GENERAL: Well-nourished, well-developed patient. CARDIOVASCULAR: Regular rate and rhythm without murmurs, gallops, or rubs. RESPIRATORY: Breath sounds equal bilaterally. No accessory muscle use. ABDOMEN/GI: Abdomen soft, non-tender. Fundus: [-] GENITOURINARY: External Genitalia: intact and normal in appearance Cervix: [not rechecked.] Uterine Contractions: [5-10minutes] Pitocin at 12mu/min/ FHT's: Category: [1] Baseline: [130s] Reactive: [-] Variability: [moderate] Decels: [none] EXTREMITIES: No cyanosis or edema, non-tender, without signs of DVT. Assessment and Plan Problem List: (1) Thrombocytopenia ICD Codes: D69.6 - Thrombocytopenia, unspecified Status: Acute (2) Elevated BP without diagnosis of hypertension ICD Codes: R03.0 - Elevated blood-pressure reading, without diagnosis of hypertension Status: Acute (3) False labor before 37 completed weeks of gestation ICD Codes: O47.00 - False labor before 37 completed weeks of gestation, unspecified trimester Status: Acute Qualifiers: Qualified Codes: O47.03 - False labor before 37 completed weeks of gestation , third trimester Assessment and Plan 21-year-old at 37 weeks,Pt also has thrombocytopenia. Urine protein wnl. Not on antihypertensives. Pt being induced for Gestational Hypertension. BP 130s/80-90s. status reassuring. Continue Pitocin per protocol. Storm Huggins MD Feb 04, 2017 12:29
[2017-02-04] MEDS ORDERED: PENICILLIN G POTASSIUM INJ 5,000,000 UNITS in SODIUM CHLORIDE 0.9% INJ 100 ML IV ONE ×4 (15:00)
--- NOTE | 2017-02-04 17:20 | PD.OB.ANTE ---
Subjective Diagnosis: (1) Thrombocytopenia Diagnosis: Principal (2) Elevated BP without diagnosis of hypertension Diagnosis: Principal (3) False labor before 37 completed weeks of gestation Diagnosis: Principal Antepartum ROS: Reports: movement normal Objective Vital Signs Vital Signs Date Time Temp Pulse Resp B/P (MAP) Pulse Ox O2 Delivery O2 Flow Rate FiO2 02/04/17 16:00 82 133/76 (95) 02/04/17 15:05 64 141/73 (95) 02/04/17 14:28 16 02/04/17 14:27 98.2 02/04/17 14:06 69 135/74 (94) 02/04/17 13:15 57 140/89 (106) 02/04/17 13:14 16 02/04/17 12:23 52 155/82 (106) 02/04/17 12:22 16 02/04/17 11:13 55 139/89 (106) 02/04/17 10:39 80 136/87 (103) 02/04/17 10:32 64 02/04/17 10:01 54 142/80 (100) 02/04/17 10:00 98.4 02/04/17 09:58 16 02/04/17 09:56 57 143/87 (105) 02/04/17 05:59 72 142/99 (113) 02/04/17 05:11 58 145/84 (104) 02/04/17 04:13 98.1 14 02/04/17 04:08 72 143/86 (105) 02/03/17 19:43 98.3 16 02/03/17 19:31 92 131/69 (89) Lab & Micro Results Test 02/04/17 04:15 White Blood Count 11.3 TH/MM3 Red Blood Count 4.20 MIL/MM3 Hemoglobin 11.9 GM/DL Hematocrit 35.3 % Mean Corpuscular Volume 83.9 FL Mean Corpuscular Hemoglobin 28.3 PG Mean Corpuscular Hemoglobin Concent 33.7 % Red Cell Distribution Width 13.3 % Platelet Count 109 TH/MM3 Mean Platelet Volume 10.0 FL Neutrophils (%) (Auto) 69.9 % Lymphocytes (%) (Auto) 21.2 % Monocytes (%) (Auto) 7.7 % Eosinophils (%) (Auto) 0.8 % Basophils (%) (Auto) 0.4 % Neutrophils # (Auto) 7.9 TH/MM3 Lymphocytes # (Auto) 2.4 TH/MM3 Monocytes # (Auto) 0.9 TH/MM3 Eosinophils # (Auto) 0.1 TH/MM3 Basophils # (Auto) 0.0 TH/MM3 CBC Comment DIFF FINAL Differential Comment Physical Exam GENERAL: Well-nourished, well-developed patient. CARDIOVASCULAR: Regular rate and rhythm without murmurs, gallops, or rubs. RESPIRATORY: Breath sounds equal bilaterally. No accessory muscle use. ABDOMEN/GI: Abdomen soft, non-tender. Fundus: [40 weeks] GENITOURINARY: External Genitalia: intact and normal in appearance Cervix: [soft] Dilatation: [1-2cm] Effacement: [70%] Station: [-2] Presentation: [vertex-] Membranes: [intact-] Uterine Contractions: [q 2-4 minutes] Cook vaginal ripening balloon inserted under sterile technique. 80cc in uterine balloon and 60cc in vaginal balloon. Taped under tension to left inner thigh. FHT's: Category: [Cat 1-] Baseline: [130s] Reactive: [-] Variability: [moderate] Decels: [none] EXTREMITIES: No cyanosis or edema, non-tender, without signs of DVT. Assessment and Plan Problem List: (1) Thrombocytopenia ICD Codes: D69.6 - Thrombocytopenia, unspecified Status: Acute (2) Elevated BP without diagnosis of hypertension ICD Codes: R03.0 - Elevated blood-pressure reading, without diagnosis of hypertension Status: Acute (3) False labor before 37 completed weeks of gestation ICD Codes: O47.00 - False labor before 37 completed weeks of gestation, unspecified trimester Status: Acute Qualifiers: Qualified Codes: O47.03 - False labor before 37 completed weeks of gestation , third trimester Assessment and Plan 21-year-old at 37 weeks,Pt also has thrombocytopenia. Urine protein wnl. Not on antihypertensives. Pt being induced for Gestational Hypertension. BP 130s/80-90s. status reassuring. Continue Pitocin per protocol. Pt has had Pitocin for 12 hours with minimal change. Alex too frequently for Cervidil or Cytotec, Cook vaginal ripening balloon inserted. Expectant. Continue Pitocin at current 16mu/min. Storm Huggins MD Feb 04, 2017 17:20
[2017-02-04] MEDS ORDERED: fentaNYL 2MCG-BUPIV 0.125% INJ 100 ML ONE ×4 (18:15→23:44)
[2017-02-04] MEDS ORDERED: ePHEDrine/NS 25 MG/5 ML SYR ONE ×2 (18:15)
[2017-02-04] MEDS ORDERED: BUPIVACAINE HCL PF 0.25% 30 ML VIAL ONE ×2 (22:26)
[2017-02-04] MEDS: PENICILLIN G POTASSIUM INJ 2,500,000 UNITS in SODIUM CHLORIDE 0.9% INJ 100 ML IV SCH ×8 (23:00→23:52)
[2017-02-04] MEDS ORDERED: NO SYSTEM NARCOTICS PRN ×2 (23:45)
[2017-02-04] MEDS ORDERED: DO NOT ADMINISTER ANTICOAGULANTS PRN ×2 (23:45)
[2017-02-04] MEDS ORDERED: fentaNYL 2MCG-BUPIV 0.125% 100 ML EPIDURAL SCH ×2 (23:45)
[2017-02-04] MEDS ORDERED: ePHEDrine/NS 25 MG/5 ML SYR IV PUSH PRN ×2 (23:45)
[2017-02-05] VITALS (32 sets, daily range): BP systolic 121–182; BP diastolic 64–93; PULSE 20–119; RESP 16–20; TEMP 98.1–99.4
--- NOTE | 2017-02-05 02:27 | PD.OB.DELI ---
Weeks gestation: 37 Gest age assessed date: Feb 05, 2017 Gest age assessed time: 02:21 Pt started active labor?: Yes Medical induction of labor?: Yes Artificial rupture of membrane: Yes Anesthesia: Epidural Episiotomy: None Vaginal Delivery: Normal Presentation: Occiput anterior Nuchal Cord: None Delayed cord clamping (45 sec): Yes : Female Delivery date: Feb 05, 2017 Delivery time: 01:55 One Minute : 6 Five Minute : 9 Weight: 2350 Placenta: Spontaneous delivery Laceration: 1 deg Repair: Vicryl running Estimated blood loss: 250 mL Additional Information Delivered by Dr. Marinelli, laceration repair by Dr. Montiel, supervised by Boom Beasley MD Feb 05, 2017 02:27
[2017-02-05] MEDS ORDERED: WITCH HAZEL 50%/GLYCERIN 12.5% 40 PAD JAR TOPICAL PRN ×2 (02:30)
[2017-02-05] MEDS ORDERED: BENZOCAINE 20% TOPICAL SPRAY 60 ML CAN TOPICAL PRN ×2 (02:30)
[2017-02-05] MEDS ORDERED: ACETAMINOPHEN 325 MG TAB PO PRN ×2 (02:30)
[2017-02-05] MEDS ORDERED: ONDANSETRON ODT 4 MG TAB PO PRN ×2 (02:30)
[2017-02-05] MEDS ORDERED: ZOLPIDEM TARTRATE 5 MG TAB PO PRN ×2 (02:30)
[2017-02-05] MEDS ORDERED: ALUMINUM/MAGNESIUM/SIMETH 30 ML CUP PO PRN ×2 (02:30)
[2017-02-05] MEDS ORDERED: SODIUM CHLORIDE 0.9% FLUSH 10 ML FLUSH IV FLUSH PRN ×2 (02:30)
[2017-02-05] MEDS ORDERED: DOCUSATE SODIUM 50 MG/SENNA 8.6 MG TAB PO PRN ×2 (02:30)
[2017-02-05] MEDS: IBUPROFEN 600 MG TAB PO PRN ×6 (03:36→23:29)
[2017-02-05] MEDS: LACTATED RINGER'S 1000 ML INJ 1,000 ML IV SCH ×2 (03:36)
[2017-02-05] MEDS ORDERED: OXYTOCIN 30 UNITS-500ML PREMIX 500 ML ONE ×2 (03:46)
[2017-02-05 04:08] LABS: HEMATOCRIT 26.8 % (35.0-46.0); MEAN CELL VOLUME 83.8 FL (80.0-100.0); MEAN CORPUSCULAR HGB CONC 33.5 % (32.0-36.0); MEAN PLATELET VOLUME 10.5 FL (7.0-11.0); PLATELET COUNT 95 TH/MM3 (150-450); RED CELL DISTRIBUTION WIDTH 13.2 % (11.6-17.2); WHITE BLOOD COUNT 15.3 TH/MM3 (4.0-11.0)
--- NOTE | 2017-02-05 05:03 | HHI.OB ---
Subjective Post Operative Day: 0 Remarks Called to see pt with heavy bleed . Pt was inspected prior to transfer to floor , and on uterine massage, expelled 3 large clots. Pt received Cytotec 600mg rectally, ( I was in main ER seeing a consult) Vitals stable. On my exam, uterus is well contracted. No blood clots in vagina. Objective Vitals/I&O Vital Signs Date Time Temp Pulse Resp B/P (MAP) Pulse Ox O2 Delivery O2 Flow Rate FiO2 02/05/17 04:30 129/86 (100) 02/05/17 04:23 126/75 (92) 02/05/17 04:00 18 02/05/17 03:48 96 127/64 (85) 02/05/17 03:23 18 02/05/17 03:22 80 126/72 (90) 02/05/17 03:01 160/93 (115) 02/05/17 02:45 83 160/90 (113) 02/05/17 02:42 18 02/05/17 02:31 84 182/81 (114) 02/05/17 02:30 98.9 02/05/17 02:30 20 02/05/17 02:26 69 157/74 (101) 02/05/17 02:15 20 02/05/17 02:01 91 149/80 (103) 02/05/17 01:59 109 02/05/17 01:49 138/82 (100) 02/05/17 01:22 20 02/05/17 01:15 145/73 (97) 02/05/17 01:15 78 02/05/17 01:00 20 20 02/05/17 01:00 68 132/73 (92) 02/05/17 00:50 66 148/77 (100) 02/05/17 00:47 144/87 (106) 02/05/17 00:45 139/82 (101) 02/05/17 00:41 98 134/92 (106) 02/05/17 00:38 136/77 (96) 02/05/17 00:33 79 154/86 (108) 02/05/17 00:30 150/87 (108) 02/05/17 00:24 18 02/05/17 00:16 119 151/78 (102) 02/05/17 00:00 113 02/05/17 00:00 129/89 (102) 02/04/17 23:53 20 02/04/17 23:50 98.1 02/04/17 23:45 79 18 142/80 (100) 02/04/17 23:30 82 147/84 (105) 02/04/17 23:16 87 143/84 (103) 02/04/17 23:00 74 143/81 (101) 02/04/17 22:45 72 126/80 (95) 02/04/17 22:44 73 135/71 (92) 02/04/17 22:42 92 144/80 (101) 02/04/17 22:40 102 147/79 (101) 02/04/17 22:38 135 141/79 (99) 02/04/17 22:37 88 128/86 (100) 02/04/17 22:33 86 123/93 (103) 02/04/17 22:32 128 106/73 (84) 02/04/17 22:16 67 130/67 (88) 02/04/17 22:11 65 124/64 (84) 02/04/17 22:07 66 168/146 (153) 02/04/17 22:00 18 02/04/17 21:46 63 149/79 (102) 02/04/17 21:30 18 02/04/17 21:30 98.0 02/04/17 21:30 81 135/94 (108) 02/04/17 21:16 61 141/74 (96) 02/04/17 21:01 62 141/66 (91) 02/04/17 21:00 18 02/04/17 20:46 58 137/60 (85) 02/04/17 20:31 58 145/78 (100) 02/04/17 20:30 18 02/04/17 20:16 60 148/81 (103) 02/04/17 20:11 58 121/86 (98) 02/04/17 20:06 205 103/83 (90) 02/04/17 20:01 63 159/80 (106) 02/04/17 20:00 18 02/04/17 19:56 120 124/69 (87) 02/04/17 19:51 93 168/104 (125) 02/04/17 19:46 66 134/65 (88) 02/04/17 19:41 59 148/77 (100) 02/04/17 19:36 57 141/77 (98) 02/04/17 19:31 58 147/80 (102) 02/04/17 19:30 98.2 18 02/04/17 19:26 58 137/71 (93) 02/04/17 19:21 77 103/75 (84) 02/04/17 19:15 122/98 (106) 02/04/17 19:11 61 127/69 (88) 02/04/17 19:06 88 121/75 (90) 02/04/17 19:00 56 124/103 (110) 02/04/17 18:55 69 127/86 (100) 02/04/17 18:51 60 129/87 (101) 02/04/17 18:45 58 148/73 (98) 02/04/17 18:41 62 135/82 (99) 02/04/17 18:36 70 143/78 (99) 02/04/17 18:31 77 147/87 (107) 02/04/17 18:25 71 02/04/17 18:25 63 170/90 (116) 02/04/17 18:21 62 144/87 (106) 02/04/17 17:31 81 126/91 (103) 02/04/17 16:00 82 133/76 (95) 02/04/17 15:05 64 141/73 (95) 02/04/17 14:28 16 02/04/17 14:27 98.2 02/04/17 14:06 69 135/74 (94) 02/04/17 13:15 57 140/89 (106) 02/04/17 13:14 16 02/04/17 12:23 52 155/82 (106) 02/04/17 12:22 16 02/04/17 11:13 55 139/89 (106) 02/04/17 10:39 80 136/87 (103) 02/04/17 10:32 64 02/04/17 10:01 54 142/80 (100) 02/04/17 10:00 98.4 02/04/17 09:58 16 02/04/17 09:56 57 143/87 (105) 02/04/17 05:59 72 142/99 (113) 02/04/17 05:11 58 145/84 (104) Result Diagram: 02/05/17 0355 02/02/17 1415 Objective Remarks GENERAL: Well-nourished, well-developed patient. CARDIOVASCULAR: Regular rate and rhythm without murmurs, gallops, or rubs. RESPIRATORY: Breath sounds equal bilaterally. No accessory muscle use. ABDOMEN/GI: Abdomen soft, non-tender, bowel sounds present. Incision: Clean, dry and intact. Fundus: Firm, non-tender at umbilicus. GENITOURINARY: Light to moderate bleeding. EXTREMITIES: No cyanosis or edema, non-tender, without signs of DVT. Medications and IVs Current Medications Medications (Trade) Dose Ordered Sig/Kevon Route Start Time Stop Time Status Last Admin Miscellaneous Information No systemic narcotics to be given except... UNSCH PRN .XX 02/04/17 23:45 02/05/17 23:44 Miscellaneous Information DO NOT ADMINISTER ANY ANTICOAGUL... UNSCH PRN .XX 02/04/17 23:45 02/05/17 23:44 (ePHEDrine/NS 25 MG/5 ML SYR) 10 mg UNSCH PRN IV PUSH 02/04/17 23:45 02/05/17 23:44 (NS Flush) 2 ml BID IV FLUSH 02/05/17 09:00 (NS Flush) 2 ml UNSCH PRN IV FLUSH 02/05/17 02:30 (Tylenol) 650 mg Q4H PRN PO 02/05/17 02:30 (Motrin) 600 mg Q6H PRN PO 02/05/17 02:30 02/05/17 03:36 (Americaine 20% Top Spr) 1 spray Q4H PRN TOPICAL 02/05/17 02:30 (Tucks Pads) 1 applic QID PRN TOPICAL 02/05/17 02:30 (Neda-Colace) 2 tab Q12H PRN PO 02/05/17 02:30 (Ambien) 5 mg HS PRN PO 02/05/17 02:30 (M-M-R Ii Inj) 0.5 ml ONCE ONCE SQ 02/05/17 16:00 02/05/17 16:01 (Boostrix Inj) 0.5 ml ONCE ONCE IM 02/05/17 16:00 02/05/17 16:01 (Mag-Al Plus Susp Liq) 15 ml Q8H PRN PO 02/05/17 02:30 (Zofran Odt) 4 mg Q6H PRN PO 02/05/17 02:30 Assessment/Plan Problem List: (1) Thrombocytopenia ICD Codes: D69.6 - Thrombocytopenia, unspecified Status: Acute (2) Elevated BP without diagnosis of hypertension ICD Codes: R03.0 - Elevated blood-pressure reading, without diagnosis of hypertension Status: Acute (3) Vaginal delivery ICD Codes: O80 - Encounter for full-term uncomplicated delivery Assessment and Plan 21-year-old s/p at 37 weeks, Pt also has thrombocytopenia. Post hg 9.1g/dL Pt's bleeding evaluated. OK for transfer to floor. Storm Huggins MD Feb 05, 2017 05:03
[2017-02-05] MEDS ORDERED: SODIUM CHLORIDE 0.9% FLUSH 10 ML FLUSH IV FLUSH SCH ×2 (09:00)
[2017-02-05] MEDS ORDERED: DIPHTH/TETANUS/ACEL PERTUSSIS (BOOSTER) 0.5 ML VIAL/PFS IM ONE ×2 (16:00)
[2017-02-05] MEDS ORDERED: MEASLES, MUMPS, RUBELLA VACCINE 0.5 ML VIAL SQ ONE ×2 (16:00)
--- NOTE | 2017-02-06 08:19 | HHI.OB ---
Subjective Post Day: 1 Remarks Pt seen and examined this morning. Post- day # 1 AFVSS overnight. Decreased lochia. Denies dysuria. No breast tenderness. She is feeding the baby via breast and bottle. Appetite good. No nausea or vomiting. Patient has not yet had a bowel movement, but does endorse bowel gas. Ambulating well. Denies calf pain or shortness of breath. Otherwise, she is doing well this morning and has no other concerns. Objective Vitals/I&O Vital Signs Date Time Temp Pulse Resp B/P (MAP) Pulse Ox O2 Delivery O2 Flow Rate FiO2 02/05/17 20:00 99.1 96 16 141/78 (99) Objective Remarks GENERAL: Well-nourished, well-developed patient. CARDIOVASCULAR: Regular rate and rhythm without murmurs, gallops, or rubs. RESPIRATORY: Breath sounds equal bilaterally. No accessory muscle use. ABDOMEN/GI: Abdomen soft, non-tender. Fundus: Firm, non-tender at umbilicus. GENITOURINARY: Light to moderate bleeding. EXTREMITIES: No cyanosis or edema, non-tender, without signs of DVT. Medications and IVs Current Medications Medications (Trade) Dose Ordered Sig/Kevon Route Start Time Stop Time Status Last Admin (NS Flush) 2 ml BID IV FLUSH 02/05/17 09:00 (NS Flush) 2 ml UNSCH PRN IV FLUSH 02/05/17 02:30 (Tylenol) 650 mg Q4H PRN PO 02/05/17 02:30 (Motrin) 600 mg Q6H PRN PO 02/05/17 02:30 02/05/17 23:29 (Americaine 20% Top Spr) 1 spray Q4H PRN TOPICAL 02/05/17 02:30 (Tucks Pads) 1 applic QID PRN TOPICAL 02/05/17 02:30 (Neda-Colace) 2 tab Q12H PRN PO 02/05/17 02:30 02/05/17 23:29 (Ambien) 5 mg HS PRN PO 02/05/17 02:30 (Mag-Al Plus Susp Liq) 15 ml Q8H PRN PO 02/05/17 02:30 (Zofran Odt) 4 mg Q6H PRN PO 02/05/17 02:30 Assessment/Plan Problem List: (1) Thrombocytopenia ICD Codes: D69.6 - Thrombocytopenia, unspecified Status: Acute (2) Elevated BP without diagnosis of hypertension ICD Codes: R03.0 - Elevated blood-pressure reading, without diagnosis of hypertension Status: Acute (3) Vaginal delivery ICD Codes: O80 - Encounter for full-term uncomplicated delivery Assessment and Plan 21 y/o female who is day # 1 s/p . -Continue routine care. -Tylenol PRN pain, patient to avoid NSAIDs as she is thrombocytopenic -Patient with bleeding, received Cytotec rectally 1. Patient endorses no bleeding overnight and currently has no complaints. -Encouraged OOB. Advised pelvic rest for 6 wks. -Re: ctrl, she would like discuss her options at her follow-up appointment. -Anticipate discharge possibly today with baby, mother to consider her options after they be evaluated by pediatric service. ya Saul MD Discharge Planning Possibly today with baby, mother to consider her options after pediatric evaluation Maverick Cardona MD R2 Feb 06, 2017 08:19
[2017-02-06 08:50] VITALS: BP 127/76; PULSE 86; RESP 16; TEMP 98.2
[2017-02-06] MEDS ORDERED: ACET1TAB86 PO ×2 (09:13)
[2017-02-06] MEDS ORDERED: SENN1TAB PO ×2 (09:13)
--- NOTE | 2017-02-06 09:14 | HHI.DCPOC ---
Discharge Care Plan Diagnosis: (1) Vaginal delivery Report Symptoms to Your Doctor -Temperature above 100.5 degrees -Redness, of incision or excessive or foul smelling drainage -Unusual pain or calf pain -Increased vaginal bleeding -Painful or difficulty urinating -Feelings of extreme sadness or anxiety after 2 weeks Goals to Promote Your Health * To prevent worsening of your condition and complications * To maintain your health at the optimal level Directions to Meet Your Goals Take your medications as prescribed Follow your dietary instruction Follow activity as directed Ensure plenty of rest for recovery Drink fluids for hydration Keep your appointments as scheduled Take your immunizations and boosters as scheduled If your symptoms worsen call your PCP, if no PCP go to Urgent Care Center or Emergency Room Smoking is Dangerous to Your Health. Avoid second hand smoke Call the 24-hour crisis hotline for domestic abuse at Maverick Cardona MD R2 Feb 06, 2017 09:14
--- NOTE | 2017-02-06 09:14 | HHI.DCPOC ---
Discharge Care Plan Diagnosis: (1) Vaginal delivery Report Symptoms to Your Doctor -Temperature above 100.5 degrees -Redness, of incision or excessive or foul smelling drainage -Unusual pain or calf pain -Increased vaginal bleeding -Painful or difficulty urinating -Feelings of extreme sadness or anxiety after 2 weeks Goals to Promote Your Health * To prevent worsening of your condition and complications * To maintain your health at the optimal level Directions to Meet Your Goals Take your medications as prescribed Follow your dietary instruction Follow activity as directed Ensure plenty of rest for recovery Drink fluids for hydration Keep your appointments as scheduled Take your immunizations and boosters as scheduled If your symptoms worsen call your PCP, if no PCP go to Urgent Care Center or Emergency Room Smoking is Dangerous to Your Health. Avoid second hand smoke Call the 24-hour crisis hotline for domestic abuse at Maverick Cardona MD R2 Feb 06, 2017 09:14
--- NOTE | 2017-02-06 09:14 | HHI.DCPOC ---
Discharge Care Plan Diagnosis: (1) Vaginal delivery Report Symptoms to Your Doctor -Temperature above 100.5 degrees -Redness, of incision or excessive or foul smelling drainage -Unusual pain or calf pain -Increased vaginal bleeding -Painful or difficulty urinating -Feelings of extreme sadness or anxiety after 2 weeks Goals to Promote Your Health * To prevent worsening of your condition and complications * To maintain your health at the optimal level Directions to Meet Your Goals Take your medications as prescribed Follow your dietary instruction Follow activity as directed Ensure plenty of rest for recovery Drink fluids for hydration Keep your appointments as scheduled Take your immunizations and boosters as scheduled If your symptoms worsen call your PCP, if no PCP go to Urgent Care Center or Emergency Room Smoking is Dangerous to Your Health. Avoid second hand smoke Call the 24-hour crisis hotline for domestic abuse at Maverick Cardona MD R2 Feb 06, 2017 09:14
[2017-02-06] MEDS ORDERED: IBUPROFEN 600 MG TAB PO PRN ×2 (23:00)
[2017-02-07] VITALS: BP 140/76; PULSE 78; RESP 18; TEMP 98.2
[2017-02-07 07:30] VITALS: BP 134/91; PULSE 72; RESP 16; TEMP 97.9
--- NOTE | 2017-02-07 08:29 | HHI.OB ---
Subjective Post Day: 2 Remarks Patient is a 21-year-old delivered at 37 weeks and 1 days. Patient is day 2 after . Patient's pain is well-controlled. Patient reports eating and drinking without any nausea or vomiting. Patient reports bleeding like a period. Patient has passed gas and bowel movements. Patient is walking without lower extremity pain or shortness of breath or chest pain. Patient reports desire for contraception and formula-feeding. Objective Vitals/I&O Vital Signs Date Time Temp Pulse Resp B/P (MAP) Pulse Ox O2 Delivery O2 Flow Rate FiO2 02/07/17 00:00 98.2 78 18 140/76 (97) 02/06/17 08:50 98.2 86 16 127/76 (93) Objective Remarks GENERAL: Well-nourished, well-developed patient. CARDIOVASCULAR: Regular rate and rhythm without murmurs, gallops, or rubs. RESPIRATORY: Breath sounds equal bilaterally. No accessory muscle use. ABDOMEN/GI: Abdomen soft, non-tender. Fundus: Firm, non-tender at umbilicus. GENITOURINARY: Light bleeding. EXTREMITIES: No cyanosis or edema, non-tender, without signs of DVT. Medications and IVs Current Medications Medications (Trade) Dose Ordered Sig/Kevon Route Start Time Stop Time Status Last Admin (NS Flush) 2 ml BID IV FLUSH 02/05/17 09:00 (NS Flush) 2 ml UNSCH PRN IV FLUSH 02/05/17 02:30 (Tylenol) 650 mg Q4H PRN PO 02/05/17 02:30 02/06/17 20:21 (Americaine 20% Top Spr) 1 spray Q4H PRN TOPICAL 02/05/17 02:30 (Tucks Pads) 1 applic QID PRN TOPICAL 02/05/17 02:30 (Neda-Colace) 2 tab Q12H PRN PO 02/05/17 02:30 02/05/17 23:29 (Ambien) 5 mg HS PRN PO 02/05/17 02:30 (Mag-Al Plus Susp Liq) 15 ml Q8H PRN PO 02/05/17 02:30 (Zofran Odt) 4 mg Q6H PRN PO 02/05/17 02:30 (Motrin) 600 mg Q6H PRN PO 02/06/17 23:00 02/06/17 23:37 Assessment/Plan Problem List: (1) Thrombocytopenia ICD Codes: D69.6 - Thrombocytopenia, unspecified Status: Acute (2) Elevated BP without diagnosis of hypertension ICD Codes: R03.0 - Elevated blood-pressure reading, without diagnosis of hypertension Status: Acute (3) Vaginal delivery ICD Codes: O80 - Encounter for full-term uncomplicated delivery Assessment and Plan Patient is a 21-year-old delivered at 37 weeks and 1 days. Patient is day 2 after . 1. routine post care -Continue routine care. -Motrin PRN pain -Patient with bleeding, received Cytotec rectally 1. Patient endorses no bleeding overnight and currently has no complaints. -Encouraged OOB. Advised pelvic rest for 6 wks. recommended follow-up in 6 weeks. -Re: ctrl, she would like a Depo-Provera shot before discharge today -Anticipate discharge likely today 2. TCP -Follow up with outpatient provider ya Huggins MD Discharge Planning Possibly today with baby, mother to consider her options after pediatric evaluation Gio Childers MD R2 Feb 07, 2017 08:29
[2017-02-07] MEDS ORDERED: medroxyPROGESTERone ACETATE SUSP 150 MG/ML SYRINGE IM ONE ×2 (08:45)
[2017-02-07] MEDS ORDERED: IBUP-232 PO ×2 (09:02)
== END 2017-02-07 14:05 | disposition home or self-care (01) | DRG 774 ==
LOC: HOBED 13:15 → H2EA 15:47 → H2EB 02-04 04:04 → OBSVTOIN 02-04 04:09 → H1EA 02-05 04:55
PROVIDERS: ADMIT Obstetrics & Gynecology; ATTEND Obstetrics & Gynecology
PROC: 0U7C7ZZ Dilation of Cervix, Via Natural or Artificial Opening (ICD-10-PCS; 2017-02-04)
PROC: 00HU33Z Insertion of Infusion Device into Spinal Canal, Percutaneous Approach (ICD-10-PCS; 2017-02-04)
PROC: 3E0R3BZ Introduction of Anesthetic Agent into Spinal Canal, Percutaneous Approach (ICD-10-PCS; 2017-02-04)
PROC: 10E0XZZ Delivery of Products of Conception, External Approach (ICD-10-PCS; principal; 2017-02-05)
PROC: 0HQ9XZZ Repair Perineum Skin, External Approach (ICD-10-PCS; 2017-02-05)
DX: O13.4 Gestational [pregnancy-induced] hypertension without significant proteinuria, complicating childbirth (principal); O72.1 Other immediate postpartum hemorrhage; D69.6 Thrombocytopenia, unspecified; O99.12 Other diseases of the blood and blood-forming organs and certain disorders involving the immune mechanism complicating childbirth; O70.0 First degree perineal laceration during delivery; Z37.0 Single live birth; Z3A.37 37 weeks gestation of pregnancy; O99.824 Streptococcus B carrier state complicating childbirth
CPT/HCPCS: 80053; 80307; 81001; 82570; 84156; 84157; 84550; 85025; 85027; 86900; 86901; 90715; G0481; J1050; J2405; J2540; J2590; J3010; J7120